=== PATIENT | female | born 1950 | race Caucasian/White ===

== ENCOUNTER → 2018-04-15 13:09 | Outpatient (CLI) | payer MEDICARE, OTHER, SELFPAY ==
--- NOTE | 2018-04-15 13:10 | DI.MG.S_ITS ---
BILATERAL DIGITAL DIAGNOSTIC MAMMOGRAM 3D/2D: 04/15/2018 CLINICAL: Left nipple discharge. Comparison is made to exams dated: 06/10/2016 mammogram, 06/12/2017 mammogram, and 05/21/2015 mammogram - [facility]. There are scattered fibroglandular elements in both breasts. No significant masses, calcifications, or other findings are seen in either breast. IMPRESSION: INCOMPLETE: NEEDS ADDITIONAL IMAGING EVALUATION There is no abnormality seen in the left breast to correspond with the discharge from the nipple in the sub-areolar depth, however, ultrasound is recommended. This exam was interpreted at Station ID: [id number]. NOTE: For mammograms, a report in lay terms will be sent to the patient. Approximately 15% of breast malignancies will not be visualized mammographically. In the management of a palpable breast mass, a negative mammogram must not discourage biopsy of a clinically suspicious lesion. Electronically Signed By: Ken lima/rita:04/15/2018 14:08:40 letter sent: Need Ultrasound ACR BI-RADS Category 0: Incomplete 3340F
--- NOTE | 2018-04-15 13:10 | DI.US.S_ITS ---
ULTRASOUND OF LEFT BREAST: 04/15/2018 CLINICAL: Intermittent left nipple bleeding x 8 days. Comparison is made to exams dated: 04/15/2018 mammogram, 06/12/2017 mammogram, and 06/10/2016 mammogram - [facility]. Color flow and real-time ultrasound of the left breast were performed on the areas of interest. There is duct ectasia in the left breast central to the nipple in the retroareolar region. No discrete internal mass identified. Color flow imaging demonstrates that there is no vascularity present. IMPRESSION: INCOMPLETE: NEEDS ADDITIONAL IMAGING EVALUATION - FOLLOW-UP RECOMMENDED The retroareolar duct ectasia in the left breast is indeterminate given history of bloody nipple discharge. An MRI is recommended. This exam was interpreted at Station ID: [id number]. Electronically Signed By: Ken lima/:04/15/2018 15:20:22 letter sent: Need MRI Ultrasound BI-RADS: 0 Indeterminate
== END ==
PROVIDERS: Family Provider Family Medicine; PCP Family Medicine; Visit Provider Internal Medicine
DX: R92.8 Other abnormal and inconclusive findings on diagnostic imaging of breast (principal); N64.52 Nipple discharge
CPT/HCPCS: 76642; 76830; 77066; G0279

== ENCOUNTER → 2018-05-03 08:21 | Outpatient (CLI) | payer MEDICARE, OTHER, SELFPAY ==
[2018-05-03 09:14] LABS: Add Manual Diff / Slide Review NO; Basophils Percent Auto 0.5 % (0-2); Eosinophils Percent Auto 3.5 % (2-4); Hematocrit 38.5 % (36-46); Hemoglobin 13.5 g/dL (12.0-16.0); Lymphocytes Percent Auto 30.4 % (25-40); Mean Corpuscular Hemoglobin 30.5 PG (26-34); Neutrophils Absolute Auto 3800 /uL (3000-5900); Neutrophils Percent Auto 56.6 % (50-75); Platelet Count 193 X10^3/uL (150-400); Red Blood Cell Count 4.43 X10^6/uL (4.0-5.2); White Blood Cell Count 6.8 X10^3/uL (4.5-11.0)
[2018-05-03 09:39] LABS: Alanine Aminotransferase 25 IU/L (9-52); Albumin 4.1 g/dL (3.5-5.0); Albumin Globulin Ratio 1.3 (1.0-2.8); Alkaline Phosphatase 54 U/L (38-126); Aspartate Aminotransferase 29 IU/L (14-36); BUN Creatinine Ratio 17.5 (6-22); Bilirubin Total 0.9 mg/dL (0.2-1.3); Blood Urea Nitrogen 14 mg/dL (7-17); Calcium 9.4 mg/dL (8.4-10.2); Carbon Dioxide 27 mmol/L (22-32); Chloride 104 mmol/L (98-107); Cholesterol 226 mg/dL (140-199); Estimated Glomerular Filt Rate > 60.0 mL/min (>60); Globulin 3.1 g/dL (1.7-4.1); Glucose 105 mg/dL (80-110); HDL Cholesterol 49 mg/dL (40-60); HEMOLYSIS < 15 (0-50); LDL Cholesterol Calculated 146 mg/dL (<100); Potassium 4.2 mmol/L (3.4-5.1); Sodium 138 mmol/L (137-145); Total Protein 7.2 g/dL (6.3-8.2); Triglycerides 154 mg/dL (35-150)
[2018-05-03 10:05] LABS: TSH w/ Reflex to FT4 2.32 uIU/mL (0.47-4.68)
== END ==
PROVIDERS: PCP Family Medicine; Visit Provider Family Medicine
DX: E78.2 Mixed hyperlipidemia (principal); E03.9 Hypothyroidism, unspecified
CPT/HCPCS: 36415; 80053; 80061; 84443; 85025

== ENCOUNTER → 2018-05-04 09:45 | Outpatient (CLI) | payer MEDICARE, OTHER, SELFPAY ==
--- NOTE | 2018-05-04 09:46 | DI.MRI.S_ITS ---
BREAST MRI OF BOTH BREASTS : 05/04/2018 CLINICAL: Left breast blood/discharge. Comparison is made to exams dated: 04/15/2018 ultrasound, 04/15/2018 mammogram, 06/12/2017 mammogram, 06/10/2016 mammogram, and 05/21/2015 mammogram - [facility]. Informed consent was obtained from the patient. Axial T1, T2, and pre and post contrast T1 images were obtained. Bilateral background breast enhancement is mild. There is linear increased T1 signal in the subareolar breasts bilaterally consistent with duct ectasia containing proteinaceous/hemorrhagic debris. There is no abnormal enhancement, masses, or distortion bilaterally. There is no correlate for the left breast discharge. IMPRESSION: NEGATIVE There is no abnormality seen in the left breast to correspond with the discharge from the nipple, however, clinical followup is recommended. There is no MRI evidence of malignancy bilaterally. A 1 year screening mammogram is recommended. This exam was interpreted at Station ID: [id number]. Electronically Signed By: Darin Rausch M.D. cj/:05/05/2018 07:56:50 Entry: - 05/05/2018 07:56:50 ACR BI-RADS Category 1: Negative 3341F
== END ==
PROVIDERS: Family Provider Family Medicine; PCP Family Medicine; Visit Provider Family Medicine
DX: N64.52 Nipple discharge (principal)
CPT/HCPCS: A9579; C8908

== ENCOUNTER → 2019-05-10 09:22 | Outpatient (CLI) | payer MEDICARE, OTHER, SELFPAY ==
--- NOTE | 2019-05-10 | DI.MG.S_ITS ---
BILATERAL DIGITAL SCREENING MAMMOGRAM 3D/2D WITH CAD: 05/10/2019 CLINICAL: Routine screening. Family history of breast cancer. Comparison is made to exams dated: 05/04/2018 breast MRI, 04/15/2018 mammogram, and 06/12/2017 mammogram - [facility]. There are scattered fibroglandular elements in both breasts. Current study was also evaluated with a Computer Aided Detection (CAD) system. There are benign vascular calcifications in the right breast. No significant masses, calcifications, or other findings are seen in either breast. There has been no significant interval change. IMPRESSION: There is no mammographic evidence of malignancy. A 1 year screening mammogram is recommended. This exam was interpreted at Station ID: [id number]. NOTE: For mammograms, a report in lay terms will be sent to the patient. Approximately 15% of breast malignancies will not be visualized mammographically. In the management of a palpable breast mass, a negative mammogram must not discourage biopsy of a clinically suspicious lesion. Electronically Signed By: Raz morales/rita:05/10/2019 10:40:54 letter sent: Normal Exam ACR BI-RADS Category 2: Benign Finding(s) 3342F
== END ==
PROVIDERS: Family Provider Family Medicine; PCP Family Medicine; Visit Provider Family Medicine
DX: Z12.31 Encounter for screening mammogram for malignant neoplasm of breast (principal); Z80.3 Family history of malignant neoplasm of breast
CPT/HCPCS: 77063; 77067

== ENCOUNTER → 2019-07-11 08:40 | Outpatient (CLI) | payer MEDICARE, OTHER, SELFPAY ==
[2019-07-11 09:51] LABS: Add Manual Diff / Slide Review NO; Basophils Absolute Auto 0 /uL (0-100); Basophils Percent Auto 0.7 % (0-2); Eosinophils Absolute Auto 200 /uL (0-450); Eosinophils Percent Auto 3.9 % (2-4); Hemoglobin 13.8 g/dL (12.0-16.0); Lymphocytes Absolute Auto 2000 /uL (1100-4500); Lymphocytes Percent Auto 37.4 % (25-40); Mean Corpuscular HGB Conc 34.6 % (30-36); Mean Corpuscular Hemoglobin 30.4 PG (26-34); Mean Corpuscular Volume 87.8 fL (80-100); Monocytes Absolute Auto 400 /uL (0-900); Neutrophils Absolute Auto 2600 /uL (1500-7000); Platelet Count 206 X10^3/uL (150-400); Red Blood Cell Count 4.55 X10^6/uL (4.0-5.2); Red Cell Distribution Width 12.7 % (11.6-14.8); White Blood Cell Count 5.3 X10^3/uL (4.5-11.0)
[2019-07-11 10:19] LABS: Alanine Aminotransferase 15 IU/L (9-52); Albumin 4.1 g/dL (3.5-5.0); Albumin Globulin Ratio 1.3 (1.0-2.8); Alkaline Phosphatase 51 U/L (38-126); Aspartate Aminotransferase 30 IU/L (14-36); BUN Creatinine Ratio 23.8 (6-22); Bilirubin Total 0.4 mg/dL (0.2-1.3); Blood Urea Nitrogen 19 mg/dL (7-17); Calcium 9.4 mg/dL (8.4-10.2); Carbon Dioxide 23 mmol/L (22-32); Chloride 106 mmol/L (98-107); Cholesterol 242 mg/dL (140-199); Estimated Glomerular Filt Rate > 60.0 mL/min (>60); Globulin 3.2 g/dL (1.7-4.1); Glucose 103 mg/dL (80-110); HDL Cholesterol 43 mg/dL (40-60); HEMOLYSIS < 15 (0-50); LDL Cholesterol Calculated 144 mg/dL (<100); Potassium 4.3 mmol/L (3.4-5.1); Sodium 138 mmol/L (137-145); Total Protein 7.3 g/dL (6.3-8.2); Triglycerides 277 mg/dL (35-150)
[2019-07-11 11:24] LABS: Thyroid Stimulating Hormone 2.58 uIU/mL (0.47-4.68)
== END ==
PROVIDERS: PCP Family Medicine; Visit Provider Family Medicine
DX: E03.9 Hypothyroidism, unspecified (principal); E78.2 Mixed hyperlipidemia; Z78.0 Asymptomatic menopausal state
CPT/HCPCS: 36415; 80053; 80061; 84443; 85025

== ENCOUNTER 2019-11-22 09:00 | Outpatient (RCR) | payer MEDICARE, OTHER, SELFPAY ==
--- NOTE | 2019-09-20 13:40 | PT.OIE ---
Current Diagnoses Other specified disorders of muscle (09/20/19) Cystocele, unspecified (09/20/19) Pelvic muscle wasting (09/20/19) Past Medical History (Last Reviewed 09/13/19 @ 11:03 by Radha Dillon MD) Abnormal Pap smear of cervix (Resolved) Cervical spine disease (Chronic 2011) Diverticular disease (Chronic ~2007) 6 (Resolved) Hypothyroidism (Chronic ~2004) Tinnitus (Chronic) Past Surgical History (Last Reviewed 09/13/19 @ 11:03 by Radha Dillon MD) Anesthesia (Resolved) Status post tonsillectomy and adenoidectomy (Resolved 1950) Status post tubal ligation (Resolved 1986) Visit Care Team Role Provider Type Issa Abrams MD Primary Care Provider Physician Specialty: Family Practice Address: [address] [place] [address], [id number] Email: [email or web address] Radha Dillon MD Attending Provider Physician Specialty: [employer] Address: [address] [place] [address], [id number] Email: Physical Therapy Initial Evaluation PT-OP-A Visit Information Start: 09/20/19 09:32 Freq: Status: Active Protocol: Document 09/20/19 09:33 [facility] (Rec: 09/20/19 10:38 [facility] [id number]) Out-Patient Physical Therapy Visit Information Visit Information Visit Type Initial Evaluation Visit Start Time 09:45 Visit Stop Time 10:30 Total Visit Minutes 45 Visit Number 1 Evaluation Information Evaluation Date 09/20/19 PT-OP-B Current Condition Start: 09/20/19 09:32 Freq: Status: Active Protocol: Document 09/20/19 09:33 [facility] (Rec: 09/20/19 10:38 [facility] [id number]) Current Condition History of Current Condition Onset Date early last fall Current Complaints pelvic organ prolapse, heaviness, frequency of voiding History of Current Condition PT reports she walks regularly and goes to the bathroom prior to leaving the house but started feeling bladder urgency with walking. Mid August she started feeling the prolapse. If she could clench it would help relieve the urgency. But she feels as if she has to clench all the time. Has estrogen cream on order to begin using. Describes her symptoms as uncomfortable but not painful. She has a history of 4 vaginal deliveries. Treatment Goals Patient/Caregiver Goals to decrease urinary urgency and pelvic organ prolapse PT-OP-I Pelvic Floor Start: 09/20/19 09:32 Freq: Status: Active Protocol: Document 09/20/19 09:33 [facility] (Rec: 09/20/19 09:58 [facility] [id number]) Pelvic Floor Assessment Urine Pelvic Floor Surgery No Urinary Symptoms Urge Sensation,Prolapse, Hesitancy,Incomplete Emptying Other Urinary Symptoms pelvic pressure from cystocele and urgency that limits her walking exercise routine. Leaking is only with strong cough or sneeze and isn't a daily problem. Leakage Size Small Leakage Cause Cough Pelvic Clock Pelvic Clock 12-3 Atrophy Pelvic Clock 9-12 Atrophy Prolapse Uterine Prolapse Grade 2 Cystocele Grade 2 Rectocele Grade 1 SEMG (uV) Baseline 2.0 10 Second Contraction 23.4 Holding Fair Contraction Ability Voluntary Contraction Weak Manual Muscle Testing Left 3 Manual Muscle Testing Right 3 Manual Muscle Testing Anterior 2 Manual Muscle Testing Posterior 3 Muscle Endurance (Seconds) 8 Comments Pelvic Floor Comments able to contract her pelvic floor with MMT of 3/5 for all parts of the levator ani except the anterior wall which is 2/5 MMT but has difficulty sustaining a contraction the full 10 seconds PT-OP-Q Treatments Start: 09/20/19 09:32 Freq: Status: Active Protocol: Document 09/20/19 13:23 [facility] (Rec: 09/25/19 13:37 [facility] [id number]) Therapeutic Exercises Supine Exercises 1 Supine Exercise Name pelvic floor long holds 10 second hold time with 10 second relaxation Side bilateral Reps/Minutes x 10 reps Comments worked on EMG biofeedback for pelvic floor facilitation prior to contraction Self-Care/Home Management Treatment Education Patient Education Home Exercise Program Other Education pt educated in bladder irritants as she drinks 4-5 glasses per day of caffeinated beverages PT-OP-T Assessment and Plan Start: 09/20/19 09:32 Freq: Status: Active Protocol: Document 09/20/19 13:23 [facility] (Rec: 09/25/19 13:37 [facility] [email or web address]) Physical Therapy Assessment Goals Four Impairment decreased strength of the anterior wall of the levator ani Prison Goal (LTG) Mitali is educated on strengthening of the anterior wall of her pelvic floor. She is able to feel this contraction and improve strength to 3/5 or better in the anterior wall LTG Duration 8 weeks Three Impairment Decreased endurance of the pelvic floor muscles Prison Goal (LTG) Mitali is able to sustain a pelvic floor contraction x 10 seconds in both supine and standing demonstrating improved endurance of the pelvic floor LTG Duration 8 weeks Two Impairment c/o pelvic pressure from Pelvic organ prolapse Interventional Tech Goal (LTG) With pelvic floor strengthening Theresa reports decreased c/o pelvic pressure and heaviness LTG Duration 8 weeks One Impairment Urinary urgency and frequency Short Term Goal (STG) Theresa is educated on bladder irritants, given a bladder diary to help her track her voids STG Duration 3 weeks Interventional Tech Goal (LTG) Theresa is able to continue her walks in the am without having to stop to void LTG Duration 8 weeks Assessment Summary Assessment Mitali presents to PT today with newer onset of pelvic organ prolapse and urinary frequency. Mitali reports she walks daily but now is having a great amount of urgency with her walks and feeling pelvic pressure. She is voiding more often now and waking 1=2 times per night to void. She reports feeling as if she needs to constantly contract her pelvic floor in standing to hold everything up. She leaks only with strong cough or sneeze. With examination today Mitali is able to contract all parts of her levator ani but she is weaker in her anterior wall and has difficulty sustaining a contraction for a full 10 seconds. She has to work on not jorge her gluteal muscles. She did better with her pelvis elevated to take pressure off her pelvic organs . She responded well to EMG biofeedback today for pelvic floor strengthening. Treatment will also include education on dietary irritants as Mitali drinks 4-5 cups of coffee per day and this may be causing increased urgency to void. Physical Therapy Plan Frequency and Duration Frequency of Treatment 1x/Week Duration of Treatment 8 Plan of Care Start Date 09/20/19 Plan of Care End Date 11/15/19 Therapeutic Interventions Therapeutic Interventions Home Exercise Program,Manual Therapy,Neuromuscular Re- education,Patient/Caregiver Education,Self-Care/Home Management,Therapeutic Exercises Modalities Biofeedback Next Visit Focus/Plan Next Note Type Treatment Note Next Visit Plan Begin with stretches to elevate the pelvis and take pressure off the pelvic organs , bladder diary hand out, EMG biofeedback for pelvic floor endurance training
--- NOTE | 2019-10-18 12:47 | PT.OTN ---
Current Diagnoses Other specified disorders of muscle (10/18/19) Cystocele, unspecified (10/18/19) Pelvic muscle wasting (10/18/19) Physical Therapy Treatment Note PT-OP-A Visit Information Start: 09/20/19 09:32 Freq: Status: Active Protocol: Document 10/18/19 12:36 [facility] (Rec: 10/18/19 12:47 [facility] [id number]) Out-Patient Physical Therapy Visit Information Visit Information Visit Type Treatment Note Visit Start Time 10:30 Visit Stop Time 11:15 Total Visit Minutes 45 Visit Number 2 Evaluation Information Evaluation Date 09/20/19 PT-OP-B Current Condition Start: 09/20/19 09:32 Freq: Status: Active Protocol: Document 09/20/19 09:33 [facility] (Rec: 09/20/19 10:38 [facility] [id number]) Current Condition History of Current Condition Onset Date early last fall Current Complaints pelvic organ prolapse, heaviness, frequency of voiding History of Current Condition PT reports she walks regularly and goes to the bathrooom prior to leaving the house but started feeling bladder urgency with walking. Mid Novemeber she started feeling the prolapse. If she could clench it would help relieve the urgency. But she feels as if she has to clench all the time. Has estrogen cream on order to begin using. Describes her symptoms as uncomfortable but not painful. She has a history of 4 vaginal deliveries. Treatment Goals Patient/Caregiver Goals to decrease urinary urgency and pelvic organ prolapse PT-OP-C Subjective Start: 09/20/19 09:32 Freq: Status: Active Protocol: Document 10/18/19 10:22 [facility] (Rec: 10/18/19 10:35 [facility] [id number]) OP-PT Subjective Patient Comments Patient Comments Pt feels likes she is better, within a couple of weeks saw a big change, then cought a cold after Letty and felt she had a set back. This put more pressure on her bladder so had a little relapse but not to the degree of where it was to bein with. Added water into her diet and cut back on coffee some too. She reports if the urge starts happening during her walk she can contract now to calm down symptoms. Patient Reported Progress Improving PT-OP-I Pelvic Floor Start: 09/20/19 09:32 Freq: Status: Active Protocol: Document 09/20/19 09:33 [facility] (Rec: 09/20/19 09:58 [facility] [id number]) Pelvic Floor Assessment Urine Pelvic Floor Surgery No Urinary Symptoms Urge Sensation,Prolapse, Hesitancy,Incomplete Emptying Other Urinary Symptoms pelvic pressure from cystocele and urgency that limits her walking exercise routine. Leaking is only with strong cough or sneeze and isn't a daily problem. Leakage Size Small Leakage Cause Cough Pelvic Clock Pelvic Clock 12-3 Atrophy Pelvic Clock 9-12 Atrophy Prolapse Uterine Prolapse Grade 2 Cystocele Grade 2 Rectocele Grade 1 SEMG (uV) Baseline 2.0 10 Second Contraction 23.4 Holding Fair Contraction Ability Voluntary Contraction Weak Manual Muscle Testing Left 3 Manual Muscle Testing Right 3 Manual Muscle Testing Anterior 2 Manual Muscle Testing Posterior 3 Muscle Endurance (Seconds) 8 Comments Pelvic Floor Comments able to contract her pelvic floor with MMT of 3/5 for all parts of the levator ani except the anterior wall which is 2/5 MMT but has difficulty sustaining a contraction the full 10 seconds PT-OP-Q Treatments Start: 09/20/19 09:32 Freq: Status: Active Protocol: Document 10/18/19 12:36 [facility] (Rec: 10/18/19 12:47 [facility] [id number]) Therapeutic Exercises Supine Exercises 3 Supine Exercise Name clam shells Reps/Minutes 3 x 10 reps 2 Supine Exercise Name pelvic floor quick flicks Reps/Minutes 10 x 2 second hold time 1 Supine Exercise Name pelvic floor long holds 10 second hold time with 10 second relaxation Side bilateral Reps/Minutes x 10 reps Comments worked on EMG biofeedback for pelvic floor facilitation prior to contractio Other Exercises 2 Other Exercise Name templates for coordination and eccentric control Reps/Minutes x 8 minutes PT-OP-T Assessment and Plan Start: 09/20/19 09:32 Freq: Status: Active Protocol: Document 10/18/19 12:36 [facility] (Rec: 10/18/19 12:47 [facility] [email or web address]) Physical Therapy Assessment Assessment Summary Assessment Mitali was shown the bolster today but didn't feel that she needed it. She is doing better overall with her endurance and reports overall that her pressure is reduced. She may be ready for standing pelvic floor next visit. By the end of 10 reps she feels fatigued. Physical Therapy Plan Frequency and Duration Frequency of Treatment 1x/Week Duration of Treatment 8 Plan of Care Start Date 09/20/19 Plan of Care End Date 11/15/19 Therapeutic Interventions Therapeutic Interventions Home Exercise Program,Manual Therapy,Neuromuscular Re- education,Patient/Caregiver Education,Self-Care/Home Management,Therapeutic Exercises Modalities Biofeedback Next Visit Focus/Plan Next Note Type Treatment Note Next Visit Plan Reassess the pelvic floor endurance next vist and progress to standing if Mitali is ready
--- NOTE | 2019-10-26 09:38 | PT.OTN ---
Current Diagnoses Other specified disorders of muscle (10/25/19) Cystocele, unspecified (10/25/19) Pelvic muscle wasting (10/25/19) Physical Therapy Treatment Note PT-OP-A Visit Information Start: 09/20/19 09:32 Freq: Status: Active Protocol: Document 10/25/19 14:34 [facility] (Rec: 10/26/19 09:38 [facility] [email or web address]) Out-Patient Physical Therapy Visit Information Visit Information Visit Type Treatment Note Visit Start Time 14:34 Visit Stop Time 15:15 Total Visit Minutes 41 Visit Number 3 PT-OP-B Current Condition Start: 09/20/19 09:32 Freq: Status: Active Protocol: Document 09/20/19 09:33 [facility] (Rec: 09/20/19 10:38 [facility] [id number]) Current Condition History of Current Condition Onset Date early last fall Current Complaints pelvic organ prolapse, heaviness, frequency of voiding History of Current Condition PT reports she walks regularly and goes to the bathrooom prior to leaving the house but started feeling bladder urgency with walking. Mid Novemeber she started feeling the prolapse. If she could clench it would help relieve the urgency. But she feels as if she has to clench all the time. Has estrogen cream on order to begin using. Describes her symptoms as uncomfortable but not painful. She has a history of 4 vaginal deliveries. Treatment Goals Patient/Caregiver Goals to decrease urinary urgency and pelvic organ prolapse PT-OP-C Subjective Start: 09/20/19 09:32 Freq: Status: Active Protocol: Document 10/25/19 14:34 [facility] (Rec: 10/25/19 15:17 [facility] [id number]) OP-PT Subjective Patient Comments Patient Comments Has been doing her pelvic floor exercises ,cough is better, was pretty comfortable at the gym, at little bladder sensation on the treadmill still when walking. Patient Reported Progress Improving PT-OP-I Pelvic Floor Start: 09/20/19 09:32 Freq: Status: Active Protocol: Document 09/20/19 09:33 [facility] (Rec: 09/20/19 09:58 [facility] [id number]) Pelvic Floor Assessment Urine Pelvic Floor Surgery No Urinary Symptoms Urge Sensation,Prolapse, Hesitancy,Incomplete Emptying Other Urinary Symptoms pelvic pressure from cystocele and urgency that limits her walking exercise routine. Leaking is only with strong cough or sneeze and isn't a daily problem. Leakage Size Small Leakage Cause Cough Pelvic Clock Pelvic Clock 12-3 Atrophy Pelvic Clock 9-12 Atrophy Prolapse Uterine Prolapse Grade 2 Cystocele Grade 2 Rectocele Grade 1 SEMG (uV) Baseline 2.0 10 Second Contraction 23.4 Holding Fair Contraction Ability Voluntary Contraction Weak Manual Muscle Testing Left 3 Manual Muscle Testing Right 3 Manual Muscle Testing Anterior 2 Manual Muscle Testing Posterior 3 Muscle Endurance (Seconds) 8 Comments Pelvic Floor Comments able to contract her pelvic floor with MMT of 3/5 for all parts of the levator ani except the anterior wall which is 2/5 MMT but has difficulty sustaining a contraction the full 10 seconds PT-OP-Q Treatments Start: 09/20/19 09:32 Freq: Status: Active Protocol: Document 10/25/19 14:34 [facility] (Rec: 10/26/19 09:38 [facility] [email or web address]) Therapeutic Exercises Supine Exercises 3 Supine Exercise Name clam shells Reps/Minutes 3 x 10 reps 2 Supine Exercise Name pelvic floor quick flicks Reps/Minutes 10 x 2 second hold time 1 Supine Exercise Name pelvic floor long holds 10 second hold time with 10 second relaxation Side bilateral Reps/Minutes x 10 reps Comments worked on EMG biofeedback for pelvic floor facilitation prior to contractio Standing Exercises 1 Standing Exercise Name standing squats with pelvic floor activation on the return to stand Reps/Minutes x 10 reps Other Exercises 2 Other Exercise Name templates for coordination and eccentric control Reps/Minutes x 8 minutes Self-Care/Home Management Treatment Education Patient Education Body Mechanics,Home Exercise Program Caregiver Education pt educated on pressure systems with lifting weights. We discussed working on pelvic floor engagement with the exertion phase of the lift to avoid undue strain down on the pelvic floor PT-OP-T Assessment and Plan Start: 09/20/19 09:32 Freq: Status: Active Protocol: Document 10/25/19 14:34 [facility] (Rec: 10/26/19 09:38 [facility] [id number]) Physical Therapy Assessment Assessment Summary Assessment Overall good improvements with her symptoms. Endurance is improving and Mitali is able to isolate her pelvic floor better now. Work towards pelvic floor activation with weight lifting activities Physical Therapy Plan Frequency and Duration Frequency of Treatment 1x/Week Duration of Treatment 8 Plan of Care Start Date 09/20/19 Plan of Care End Date 11/15/19 Next Visit Focus/Plan Next Note Type Treatment Note Next Visit Plan work on TA in quadruped, standing pelvic floor activation. Review any weight lifting exercises with pelvic floor activation
--- NOTE | 2019-11-08 15:11 | PT.OTN ---
Current Diagnoses Other specified disorders of muscle (11/08/19) Cystocele, unspecified (11/08/19) Pelvic muscle wasting (11/08/19) Physical Therapy Treatment Note PT-OP-A Visit Information Start: 09/20/19 09:32 Freq: Status: Active Protocol: Document 11/08/19 15:07 [facility] (Rec: 11/08/19 15:11 [facility] [email or web address]) Out-Patient Physical Therapy Visit Information Visit Information Visit Type Treatment Note Visit Start Time 09:50 Visit Stop Time 10:30 Total Visit Minutes 40 Visit Number 5 PT-OP-B Current Condition Start: 09/20/19 09:32 Freq: Status: Active Protocol: Document 09/20/19 09:33 [facility] (Rec: 09/20/19 10:38 [facility] [id number]) Current Condition History of Current Condition Onset Date early last fall Current Complaints pelvic organ prolapse, heaviness, frequency of voiding History of Current Condition PT reports she walks regularly and goes to the bathrooom prior to leaving the house but started feeling bladder urgency with walking. Mid Novemeber she started feeling the prolapse. If she could clench it would help relieve the urgency. But she feels as if she has to clench all the time. Has estrogen cream on order to begin using. Describes her symptoms as uncomfortable but not painful. She has a history of 4 vaginal deliveries. Treatment Goals Patient/Caregiver Goals to decrease urinary urgency and pelvic organ prolapse PT-OP-C Subjective Start: 09/20/19 09:32 Freq: Status: Active Protocol: Document 11/08/19 15:07 [facility] (Rec: 11/08/19 15:11 [facility] [email or web address]) OP-PT Subjective Patient Comments Patient Comments continuing to do well and working on pressure systems at the gym trying to slow down her exercises to avoid undo strain PT-OP-I Pelvic Floor Start: 09/20/19 09:32 Freq: Status: Active Protocol: Document 09/20/19 09:33 [facility] (Rec: 09/20/19 09:58 [facility] [email or web address]) Pelvic Floor Assessment Urine Pelvic Floor Surgery No Urinary Symptoms Urge Sensation,Prolapse, Hesitancy,Incomplete Emptying Other Urinary Symptoms pelvic pressure from cystocele and urgency that limits her walking exercise routine. Leaking is only with strong cough or sneeze and isn't a daily problem. Leakage Size Small Leakage Cause Cough Pelvic Clock Pelvic Clock 12-3 Atrophy Pelvic Clock 9-12 Atrophy Prolapse Uterine Prolapse Grade 2 Cystocele Grade 2 Rectocele Grade 1 SEMG (uV) Baseline 2.0 10 Second Contraction 23.4 Holding Fair Contraction Ability Voluntary Contraction Weak Manual Muscle Testing Left 3 Manual Muscle Testing Right 3 Manual Muscle Testing Anterior 2 Manual Muscle Testing Posterior 3 Muscle Endurance (Seconds) 8 Comments Pelvic Floor Comments able to contract her pelvic floor with MMT of 3/5 for all parts of the levator ani except the anterior wall which is 2/5 MMT but has difficulty sustaining a contraction the full 10 seconds PT-OP-Q Treatments Start: 09/20/19 09:32 Freq: Status: Active Protocol: Document 11/08/19 09:54 [facility] (Rec: 11/08/19 10:31 [facility] [id number]) Therapeutic Exercises Supine Exercises 6 Supine Exercise Name Lower abdominal progression level 1 b Reps/Minutes x 5 5 Supine Exercise Name TA facilitation with marches Reps/Minutes x 10 4 Supine Exercise Name templates for eccentric control and coordination 3 Supine Exercise Name clam shells Reps/Minutes 3 x 10 reps 2 Supine Exercise Name pelvic floor quick flicks Reps/Minutes 10 x 2 second hold time 1 Supine Exercise Name pelvic floor long holds 10 second hold time with 10 second relaxation Side bilateral Reps/Minutes x 10 reps Comments worked on EMG biofeedback for pelvic floor facilitation prior to contraction Other Exercises 1 Other Exercise Name quadruped TA facilitation with Opposite arm lifts Side bilateral Reps/Minutes x 10 reps 2 Other Exercise Name quadruped TA facilitation Reps/Minutes 10 reps with exhale upon TA facilitation, Inhale relax PT-OP-T Assessment and Plan Start: 09/20/19 09:32 Freq: Status: Active Protocol: Document 11/08/19 15:07 [facility] (Rec: 11/08/19 15:11 [facility] [email or web address]) Physical Therapy Assessment Assessment Summary Assessment Great increase in pelvic floor recruitment today. Average contraction is 21.7 uv today and max contraction is 41.4 uv . Physical Therapy Plan Frequency and Duration Frequency of Treatment 1x/Week Duration of Treatment 8 Plan of Care Start Date 09/20/19 Plan of Care End Date 11/15/19
--- NOTE | 2019-11-15 12:34 | PT.OTN ---
Current Diagnoses Other specified disorders of muscle (11/15/19) Cystocele, unspecified (11/15/19) Pelvic muscle wasting (11/15/19) Physical Therapy Treatment Note PT-OP-A Visit Information Start: 09/20/19 09:32 Freq: Status: Active Protocol: Document 11/15/19 12:28 [facility] (Rec: 11/15/19 12:34 [facility] [email or web address]) Out-Patient Physical Therapy Visit Information Visit Information Visit Type Treatment Note Visit Start Time 09:00 Visit Stop Time 09:45 Total Visit Minutes 45 Visit Number 6 Evaluation Information Evaluation Date 09/20/19 PT-OP-B Current Condition Start: 09/20/19 09:32 Freq: Status: Active Protocol: Document 09/20/19 09:33 [facility] (Rec: 09/20/19 10:38 [facility] [id number]) Current Condition History of Current Condition Onset Date early last fall Current Complaints pelvic organ prolapse, heaviness, frequency of voiding History of Current Condition PT reports she walks regularly and goes to the bathrooom prior to leaving the house but started feeling bladder urgency with walking. Mid Novemeber she started feeling the prolapse. If she could clench it would help relieve the urgency. But she feels as if she has to clench all the time. Has estrogen cream on order to begin using. Describes her symptoms as uncomfortable but not painful. She has a history of 4 vaginal deliveries. Treatment Goals Patient/Caregiver Goals to decrease urinary urgency and pelvic organ prolapse PT-OP-C Subjective Start: 09/20/19 09:32 Freq: Status: Active Protocol: Document 11/15/19 09:00 [facility] (Rec: 11/15/19 09:44 [facility] [id number]) OP-PT Subjective Patient Comments Patient Comments Pt reports she is not feeling the pelvic pressure like she was and is not having as much urgency on the treadmill or with walking. Has a appointment next week with Dr trinidad. Feeling stronger in her pelvic floor overall. Patient Reported Progress Improving PT-OP-I Pelvic Floor Start: 09/20/19 09:32 Freq: Status: Active Protocol: Document 09/20/19 09:33 [facility] (Rec: 09/20/19 09:58 [facility] [email or web address]) Pelvic Floor Assessment Urine Pelvic Floor Surgery No Urinary Symptoms Urge Sensation,Prolapse, Hesitancy,Incomplete Emptying Other Urinary Symptoms pelvic pressure from cystocele and urgency that limits her walking exercise routine. Leaking is only with strong cough or sneeze and isn't a daily problem. Leakage Size Small Leakage Cause Cough Pelvic Clock Pelvic Clock 12-3 Atrophy Pelvic Clock 9-12 Atrophy Prolapse Uterine Prolapse Grade 2 Cystocele Grade 2 Rectocele Grade 1 SEMG (uV) Baseline 2.0 10 Second Contraction 23.4 Holding Fair Contraction Ability Voluntary Contraction Weak Manual Muscle Testing Left 3 Manual Muscle Testing Right 3 Manual Muscle Testing Anterior 2 Manual Muscle Testing Posterior 3 Muscle Endurance (Seconds) 8 Comments Pelvic Floor Comments able to contract her pelvic floor with MMT of 3/5 for all parts of the levator ani except the anterior wall which is 2/5 MMT but has difficulty sustaining a contraction the full 10 seconds PT-OP-Q Treatments Start: 09/20/19 09:32 Freq: Status: Active Protocol: Document 11/15/19 12:28 [facility] (Rec: 11/15/19 12:34 [facility] [email or web address]) Therapeutic Exercises Supine Exercises 6 Supine Exercise Name Lower abdominal progression level 1 b Reps/Minutes x 5 5 Supine Exercise Name TA facilitation with marches Reps/Minutes x 10 4 Supine Exercise Name templates for eccentric control and coordination 2 Supine Exercise Name pelvic floor quick flicks Reps/Minutes 10 x 2 second hold time 1 Supine Exercise Name pelvic floor long holds 10 second hold time with 10 second relaxation Side bilateral Reps/Minutes x 10 reps Comments worked on EMG biofeedback for pelvic floor facilitation prior to contractio Other Exercises 1 Other Exercise Name quadruped TA facilitation with Opposite arm lifts Side bilateral Reps/Minutes x 10 reps 2 Other Exercise Name cat cow Reps/Minutes x 10 reps PT-OP-T Assessment and Plan Start: 09/20/19 09:32 Freq: Status: Active Protocol: Document 11/15/19 12:28 [facility] (Rec: 11/15/19 12:34 [facility] [email or web address]) Physical Therapy Assessment Goals Four Impairment decreased strength of the anterior wall of the levator ani Manager Consumer Goal (LTG) Mitali is educated on strengthening of the anterior wall of her pelvic floor. She is able to feel this contraction and improve strength to 3/5 or better in the anterior wall EXCELLENT PROGRESS LTG Duration 8 weeks Three Impairment Decreased endurance of the pelvic floor muscles Manager Consumer Goal (LTG) Mitali is able to sustain a pelvic floor contraction x 10 seconds in both supine and standing demonstrating improved endurance of the pelvic floor GOAL MET LTG Duration 8 weeks Two Impairment c/o pelvic pressure from Pelvic organ prolapse Manager Consumer Goal (LTG) With pelvic floor strengthening Theresa reports decreased c/o pelvic pressure and heaviness GOAL MET, overall decrease in pelvic pressure LTG Duration 8 weeks One Impairment Urinary urgency and frequency Short Term Goal (STG) Theresa is educated on bladder irritants, given a bladder diary to help her track her voids GOAL MET STG Duration 3 weeks Snf Goal (LTG) Theresa is able to continue her walks in the am without having to stop to void Good progress LTG Duration 8 weeks Assessment Summary Assessment Theresa is making steady progress with pelvic floor strengthening and showing a good increase in her pelvic floor strength. Her average on EMG biofeedback has increased to 21 uv and max is 41 uv. She is noting a overall reduction in her urgency and pelvic pressure. She has one visit left in PT and will then be DC to a independent [facility] Physical Therapy Plan Frequency and Duration Frequency of Treatment 1x/Week Duration of Treatment 8 Plan of Care Start Date 11/15/19 Plan of Care End Date 12/20/19 Therapeutic Interventions Therapeutic Interventions Home Exercise Program,Manual Therapy,Neuromuscular Re- education,Patient/Caregiver Education,Self-Care/Home Management,Therapeutic Exercises Modalities Biofeedback
--- NOTE | 2019-11-15 12:34 | PT.OPPOC ---
Physical, Occupational & Speech Therapy At [facility] Current Diagnoses Other specified disorders of muscle (11/15/19) Cystocele, unspecified (11/15/19) Pelvic muscle wasting (11/15/19) Visit Care Team Role Provider Type Issa Abrams MD Primary Care Provider Physician Specialty: Family Practice Address: [address] [place] [address], [id number] Email: [email or web address] Radha Dillon MD Attending Provider Physician Specialty: FRONT OFFICE JAVA DEVELOPER Address: [address] [place] [address], [id number] Email: Plan Of Care PT-OP-T Assessment and Plan Start: 09/20/19 09:32 Freq: Status: Active Protocol: Document 11/15/19 12:28 [facility] (Rec: 11/15/19 12:34 [facility] [email or web address]) Physical Therapy Assessment Goals Four Impairment decreased strength of the anterior wall of the levator ani Call Center Specialist Goal (LTG) Mitali is educated on strengthening of the anterior wall of her pelvic floor. She is able to feel this contraction and improve strength to 3/5 or better in the anterior wall EXCELLENT PROGRESS LTG Duration 8 weeks Three Impairment Decreased endurance of the pelvic floor muscles Intermediate Goal (LTG) Mitali is able to sustain a pelvic floor contraction x 10 seconds in both supine and standing demonstrating improved endurance of the pelvic floor GOAL MET LTG Duration 8 weeks Two Impairment c/o pelvic pressure from Pelvic organ prolapse Intermediate Goal (LTG) With pelvic floor strengthening Theresa reports decreased c/o pelvic pressure and heaviness GOAL MET, overall decrease in pelvic pressure LTG Duration 8 weeks One Impairment Urinary urgency and frequency Short Term Goal (STG) Theresa is educated on bladder irritants, given a bladder diary to help her track her voids GOAL MET STG Duration 3 weeks Intermediate Goal (LTG) Theresa is able to continue her walks in the am without having to stop to void Good progress LTG Duration 8 weeks Assessment Summary Assessment Theresa is making steady progress with pelvic floor strengthening and showing a good increase in her pelvic floor strength. Her average on EMG biofeedback has increased to 21 uv and max is 41 uv. She is noting a overall reduction in her urgency and pelvic pressure. She has one visit left in PT and will then be DC to a independent [facility] Physical Therapy Plan Frequency and Duration Frequency of Treatment 1x/Week Duration of Treatment 8 Plan of Care Start Date 11/15/19 Plan of Care End Date 12/20/19 Therapeutic Interventions Therapeutic Interventions Home Exercise Program,Manual Therapy,Neuromuscular Re- education,Patient/Caregiver Education,Self-Care/Home Management,Therapeutic Exercises Modalities Biofeedback Plan of Care Dates Plan of Care Start Date 11/15/19 Plan of Care End Date 12/20/19 Electronically Signed by: Brittany Dickerson, PT 11/15/19 [id number] Please Sign and Return: I have reviewed this Plan of Care and certify that the skilled therapy services above are required to meet the patient?s needs. Physician Signature Date Printed Name and Credentials Clinical Instructor Signature Printed Name and Credentials
--- NOTE | 2019-11-23 09:32 | PT.OTN ---
Current Diagnoses Other specified disorders of muscle (11/22/19) Cystocele, unspecified (11/22/19) Pelvic muscle wasting (11/22/19) Physical Therapy Treatment Note PT-OP-A Visit Information Start: 09/20/19 09:32 Freq: Status: Active Protocol: Document 11/22/19 09:14 [facility] (Rec: 11/23/19 09:32 [facility] [email or web address]) Out-Patient Physical Therapy Visit Information Visit Information Visit Type Treatment Note Visit Start Time 09:00 Visit Stop Time 09:45 Total Visit Minutes 45 Visit Number 7 Evaluation Information Evaluation Date 09/20/19 PT-OP-B Current Condition Start: 09/20/19 09:32 Freq: Status: Active Protocol: Document 09/20/19 09:33 [facility] (Rec: 09/20/19 10:38 [facility] [id number]) Current Condition History of Current Condition Onset Date early last fall Current Complaints pelvic organ prolapse, heaviness, frequency of voiding History of Current Condition PT reports she walks regularly and goes to the bathrooom prior to leaving the house but started feeling bladder urgency with walking. Mid Novemeber she started feeling the prolapse. If she could clench it would help relieve the urgency. But she feels as if she has to clench all the time. Has estrogen cream on order to begin using. Describes her symptoms as uncomfortable but not painful. She has a history of 4 vaginal deliveries. Treatment Goals Patient/Caregiver Goals to decrease urinary urgency and pelvic organ prolapse PT-OP-C Subjective Start: 09/20/19 09:32 Freq: Status: Active Protocol: Document 11/22/19 09:14 [facility] (Rec: 11/23/19 09:32 [facility] [email or web address]) OP-PT Subjective Patient Comments Patient Comments pt reports she feels independent with her home program at this time. Overall she notes decreased pressure and decreased urgency. She can tell now if she has caffeine that it does cause more urgency. She will follow up with her doctor and will continue working on her home program PT-OP-I Pelvic Floor Start: 09/20/19 09:32 Freq: Status: Active Protocol: Document 09/20/19 09:33 [facility] (Rec: 09/20/19 09:58 [facility] [email or web address]) Pelvic Floor Assessment Urine Pelvic Floor Surgery No Urinary Symptoms Urge Sensation,Prolapse, Hesitancy,Incomplete Emptying Other Urinary Symptoms pelvic pressure from cystocele and urgency that limits her walking exercise routine. Leaking is only with strong cough or sneeze and isn't a daily problem. Leakage Size Small Leakage Cause Cough Pelvic Clock Pelvic Clock 12-3 Atrophy Pelvic Clock 9-12 Atrophy Prolapse Uterine Prolapse Grade 2 Cystocele Grade 2 Rectocele Grade 1 SEMG (uV) Baseline 2.0 10 Second Contraction 23.4 Holding Fair Contraction Ability Voluntary Contraction Weak Manual Muscle Testing Left 3 Manual Muscle Testing Right 3 Manual Muscle Testing Anterior 2 Manual Muscle Testing Posterior 3 Muscle Endurance (Seconds) 8 Comments Pelvic Floor Comments able to contract her pelvic floor with MMT of 3/5 for all parts of the levator ani except the anterior wall which is 2/5 MMT but has difficulty sustaining a contraction the full 10 seconds PT-OP-Q Treatments Start: 09/20/19 09:32 Freq: Status: Active Protocol: Document 11/22/19 09:14 [facility] (Rec: 11/23/19 09:32 [facility] [email or web address]) Therapeutic Exercises Supine Exercises 6 Supine Exercise Name Lower abdominal progression level 1 b Reps/Minutes x 5 5 Supine Exercise Name TA facilitation with marches Reps/Minutes x 10 4 Supine Exercise Name templates for eccentric control and coordination 3 Supine Exercise Name clam shells Reps/Minutes 3 x 10 reps 2 Supine Exercise Name pelvic floor quick flicks Reps/Minutes 10 x 2 second hold time 1 Supine Exercise Name pelvic floor long holds 10 second hold time with 10 second relaxation Side bilateral Reps/Minutes x 10 reps Comments worked on EMG biofeedback for pelvic floor facilitation prior to contractio PT-OP-T Assessment and Plan Start: 09/20/19 09:32 Freq: Status: Active Protocol: Document 11/22/19 09:14 [facility] (Rec: 11/23/19 09:32 [facility] [email or web address]) Physical Therapy Assessment Goals Four Impairment decreased strength of the anterior wall of the levator ani Nursing Home Goal (LTG) Mitali is educated on strengthening of the anterior wall of her pelvic floor. She is able to feel this contraction and improve strength to 3/5 or better in the anterior wall GOAL MET LTG Duration 8 weeks Three Impairment Decreased endurance of the pelvic floor muscles Frame Operator Goal (LTG) Mitali is able to sustain a pelvic floor contraction x 10 seconds in both supine and standing demonstrating improved endurance of the pelvic floor GOAL MET LTG Duration 8 weeks Two Impairment c/o pelvic pressure from Pelvic organ prolapse Nursing Home Goal (LTG) With pelvic floor strengthening Theresa reports decreased c/o pelvic pressure and heaviness GOAL MET, overall decrease in pelvic pressure LTG Duration 8 weeks One Impairment Urinary urgency and frequency Short Term Goal (STG) Theresa is educated on bladder irritants, given a bladder diary to help her track her voids GOAL MET STG Duration 3 weeks Frame Operator Goal (LTG) Theresa is able to continue her walks in the am without having to stop to void EXCELLENT PROGRESS LTG Duration 8 weeks Assessment Summary Assessment Theresa has made great overall progress with pelvic floor strengthening. She demonstrates improved endurance of the pelvic floor, decreased urgency and decreased c/o heaviness from the pelvic organ prolapse. Mitali will be discharged from PT at this time to a [facility] Physical Therapy Plan Discharge Physical Therapy Discharge Reasons Goals Met
== END 2019-11-29 08:45 | disposition home or self-care (01) ==
LOC: PHYS 09:00
PROVIDERS: PCP Family Medicine; Visit Provider Obstetrics & Gynecology
DX: M62.89 Other specified disorders of muscle (principal); N81.84 Pelvic muscle wasting; N81.10 Cystocele, unspecified
CPT/HCPCS: 97110; 97161; 97535

== ENCOUNTER → 2020-07-11 08:14 | Outpatient (CLI) | payer MEDICARE, OTHER, SELFPAY ==
--- NOTE | 2020-07-11 | DI.MG.S_ITS ---
BILATERAL DIGITAL SCREENING MAMMOGRAM 3D/2D WITH CAD: 07/11/2020 CLINICAL: Routine screening. Family history of breast cancer. Comparison is made to exams dated: 05/10/2019 mammogram, 04/15/2018 mammogram, and 06/12/2017 mammogram - [facility]. There are scattered fibroglandular elements in both breasts. Current study was also evaluated with a Computer Aided Detection (CAD) system. There are benign vascular calcifications in the right breast. No significant masses, calcifications, or other findings are seen in either breast. There has been no significant interval change. IMPRESSION: BENIGN There is no mammographic evidence of malignancy. A 1 year screening mammogram is recommended. This exam was interpreted at Station ID: [id number]. NOTE: For mammograms, a report in lay terms will be sent to the patient. Approximately 15% of breast malignancies will not be visualized mammographically. In the management of a palpable breast mass, a negative mammogram must not discourage biopsy of a clinically suspicious lesion. Electronically Signed By: Chu Solitario M.D., jr/rita:07/11/2020 09:03:06 letter sent: Normal Exam ACR BI-RADS Category 2: Benign Finding(s) [id number]
[2020-07-11 10:32] LABS: Add Manual Diff / Slide Review NO; Basophils Absolute Auto 100 /uL (0-100); Basophils Percent Auto 0.8 % (0-2); Eosinophils Absolute Auto 200 /uL (0-450); Eosinophils Percent Auto 2.8 % (2-4); Hematocrit 39.2 % (36-46); Hemoglobin 13.7 g/dL (12.0-16.0); Lymphocytes Absolute Auto 2100 /uL (1100-4500); Lymphocytes Percent Auto 27.1 % (25-40); Mean Corpuscular HGB Conc 34.9 % (30-36); Mean Corpuscular Hemoglobin 30.7 PG (26-34); Mean Corpuscular Volume 88.2 fL (80-100); Monocytes Absolute Auto 500 /uL (0-900); Monocytes Percent Auto 6.7 % (3-14); Neutrophils Absolute Auto 4800 /uL (1500-7000); Neutrophils Percent Auto 62.6 % (50-75); Platelet Count 207 X10^3/uL (150-400); Red Blood Cell Count 4.45 X10^6/uL (4.0-5.2); Red Cell Distribution Width 13.3 % (11.6-14.8); White Blood Cell Count 7.7 X10^3/uL (4.5-11.0)
[2020-07-11 11:35] LABS: Alanine Aminotransferase 20 IU/L (<35); Albumin 4.2 g/dL (3.5-5.0); Albumin Globulin Ratio 1.4 (1.0-2.8); Alkaline Phosphatase 51 U/L (38-126); Aspartate Aminotransferase 35 IU/L (14-36); BUN Creatinine Ratio 16.7 (6-22); Bilirubin Total 0.6 mg/dL (0.2-1.3); Blood Urea Nitrogen 14 mg/dL (7-17); Calcium 9.1 mg/dL (8.4-10.2); Carbon Dioxide 26 mmol/L (22-32); Chloride 106 mmol/L (98-107); Cholesterol 257 mg/dL (140-199); Estimated Glomerular Filt Rate > 60.0 mL/min (>60); Globulin 2.9 g/dL (1.7-4.1); Glucose 98 mg/dL (80-110); HDL Cholesterol 45 mg/dL (40-60); HEMOLYSIS < 15 (0-50); LDL Cholesterol Calculated 154 mg/dL (<100); Potassium 4.6 mmol/L (3.4-5.1); Sodium 137 mmol/L (137-145); Total Protein 7.1 g/dL (6.3-8.2); Triglycerides 291 mg/dL (35-150)
[2020-07-11 11:53] LABS: Thyroid Stimulating Hormone 2.16 uIU/mL (0.47-4.68)
== END ==
PROVIDERS: PCP Family Medicine; Referring Provider Family Medicine; Visit Provider Family Medicine
DX: Z12.31 Encounter for screening mammogram for malignant neoplasm of breast (principal); Z80.3 Family history of malignant neoplasm of breast; E03.9 Hypothyroidism, unspecified; E78.2 Mixed hyperlipidemia
CPT/HCPCS: 36415; 77063; 77067; 80053; 80061; 84443; 85025

== ENCOUNTER → 2021-09-09 16:16 | Outpatient (CLI) | payer MEDICARE, OTHER, SELFPAY ==
--- NOTE | 2021-09-09 | DI.MG.S_ITS ---
BILATERAL DIGITAL SCREENING MAMMOGRAM 3D/2D WITH CAD: 09/09/2021 CLINICAL: Routine screening. Family history of breast cancer. Comparison is made to exams dated: 07/11/2020 mammogram, 05/10/2019 mammogram, and 04/15/2018 mammogram - [facility]. There are scattered fibroglandular elements in both breasts. Current study was also evaluated with a Computer Aided Detection (CAD) system. There are benign vascular calcifications in the right breast. No significant masses, calcifications, or other findings are seen in either breast. There has been no significant interval change. IMPRESSION: BENIGN There is no mammographic evidence of malignancy. A 1 year screening mammogram is recommended. This exam was interpreted at Station ID: [id number]. NOTE: For mammograms, a report in lay terms will be sent to the patient. Approximately 15% of breast malignancies will not be visualized mammographically. In the management of a palpable breast mass, a negative mammogram must not discourage biopsy of a clinically suspicious lesion. Electronically Signed By: Kenan ellis/rita:09/09/2021 16:48:38 letter sent: Normal Exam ACR BI-RADS Category 2: Benign Finding(s) [id number]
== END ==
PROVIDERS: PCP Nurse Practitioner Family; Referring Provider Nurse Practitioner Family; Visit Provider Nurse Practitioner Family
DX: Z12.31 Encounter for screening mammogram for malignant neoplasm of breast (principal); Z80.3 Family history of malignant neoplasm of breast
CPT/HCPCS: 77063; 77067

== ENCOUNTER → 2021-11-11 08:04 | Outpatient (CLI) | payer MEDICARE, OTHER, SELFPAY ==
[2021-11-11 09:05] LABS: Hemoglobin 13.2 g/dL (12.0-16.0); Mean Corpuscular HGB Conc 34.8 % (30-36); Mean Corpuscular Volume 86.2 fL (80-100); Platelet Count 206 X10^3/uL (150-400); Red Blood Cell Count 4.41 X10^6/uL (4.0-5.2); Red Cell Distribution Width 12.7 % (11.6-14.8); White Blood Cell Count 4.9 X10^3/uL (4.5-11.0)
[2021-11-11 09:10] LABS: Alanine Aminotransferase 17 IU/L (<35); Albumin 4.2 g/dL (3.5-5.0); Albumin Globulin Ratio 1.4 (1.0-2.8); Alkaline Phosphatase 37 U/L (38-126); Aspartate Aminotransferase 29 IU/L (14-36); BUN Creatinine Ratio 26.7 (6-22); Bilirubin Total 0.5 mg/dL (0.2-1.3); Blood Urea Nitrogen 23 mg/dL (7-17); Calcium 9.4 mg/dL (8.4-10.2); Carbon Dioxide 26 mmol/L (22-32); Chloride 108 mmol/L (98-107); Cholesterol 260 mg/dL (140-199); Estimated Glomerular Filt Rate > 60.0 mL/min (>60); Globulin 3.1 g/dL (1.7-4.1); Glucose 109 mg/dL (80-110); HDL Cholesterol 45 mg/dL (40-60); HEMOLYSIS < 15 (0-50); LDL Cholesterol Calculated 183 mg/dL (<100); Potassium 4.4 mmol/L (3.4-5.1); Sodium 138 mmol/L (137-145); Total Protein 7.3 g/dL (6.3-8.2); Triglycerides 161 mg/dL (35-150)
[2021-11-11 10:03] LABS: Free T4, Direct Thyroxine 1.42 ng/dL (0.78-2.19)
[2021-11-11 10:16] LABS: Thyroid Stimulating Hormone 2.38 uIU/mL (0.47-4.68)
== END ==
PROVIDERS: PCP Nurse Practitioner Family; Referring Provider Nurse Practitioner Family; Visit Provider Nurse Practitioner Family
DX: E03.9 Hypothyroidism, unspecified (principal); E78.2 Mixed hyperlipidemia; Z00.00 Encounter for general adult medical examination without abnormal findings
CPT/HCPCS: 36415; 80053; 80061; 84439; 84443; 85027

== ENCOUNTER → 2022-04-21 08:06 | Outpatient (CLI) | payer MEDICARE, OTHER, SELFPAY ==
[2022-04-21 09:37] LABS: Cholesterol 256 mg/dL (140-199); HDL Cholesterol 42 mg/dL (40-60); LDL Cholesterol Calculated 178 mg/dL (<100); Triglycerides 179 mg/dL (35-150)
== END ==
PROVIDERS: PCP Nurse Practitioner Family; Referring Provider Nurse Practitioner Family; Visit Provider Nurse Practitioner Family
DX: E78.2 Mixed hyperlipidemia (principal); Z13.6 Encounter for screening for cardiovascular disorders
CPT/HCPCS: 36415; 80061

== ENCOUNTER → 2022-10-14 07:56 | Outpatient (CLI) | payer MEDICARE, OTHER, SELFPAY ==
--- NOTE | 2022-10-14 | DI.MG.S_ITS ---
BILATERAL DIGITAL SCREENING MAMMOGRAM 3D/2D WITH CAD: 10/14/2022 CLINICAL: Routine screening. Family history of breast cancer. Comparison is made to exams dated: 09/09/2021 mammogram, 07/11/2020 mammogram, and 05/10/[address] - [facility]. There are scattered areas of fibroglandular density in both breasts (category b / 25%-50% glandular tissue). Current study was also evaluated with a Computer Aided Detection (CAD) system. There are benign vascular calcifications in both breasts. No significant masses, calcifications, or other findings are seen in either breast. There has been no significant interval change. IMPRESSION: BENIGN There is no mammographic evidence of malignancy. A 1 year screening mammogram is recommended. Based on the Tyrer Cuzick model (a risk assessment model) the patient's lifetime risk is 4.8% and her 10 year risk is 3.9%. According to the ACR, ACS, and NCCN guidelines, an annual breast MRI exam along with mammogram is recommended if the patient's lifetime risk is 20% or greater. This exam was interpreted at Station ID: [id number]. NOTE: For mammograms, a report in lay terms will be sent to the patient. Approximately 15% of breast malignancies will not be visualized mammographically. In the management of a palpable breast mass, a negative mammogram must not discourage biopsy of a clinically suspicious lesion. Electronically Signed By: Britton abel/rita:10/14/2022 10:39:48 letter sent: Normal Exam ACR BI-RADS Category 2: Benign Finding(s) [id number]
== END ==
PROVIDERS: PCP Nurse Practitioner; Referring Provider Nurse Practitioner; Visit Provider Nurse Practitioner
DX: Z12.31 Encounter for screening mammogram for malignant neoplasm of breast (principal); Z80.3 Family history of malignant neoplasm of breast
CPT/HCPCS: 77063; 77067

== ENCOUNTER → 2022-11-13 07:02 | Outpatient (CLI) | payer MEDICARE, OTHER, SELFPAY ==
[2022-11-13 08:44] LABS: Alanine Aminotransferase 19 IU/L (<35); Albumin Globulin Ratio 1.4 (1.0-2.8); Alkaline Phosphatase 47 U/L (38-126); Aspartate Aminotransferase 27 IU/L (14-36); BUN Creatinine Ratio 21.7 (6-22); Bilirubin Total 0.5 mg/dL (0.2-1.3); Blood Urea Nitrogen 18 mg/dL (7-17); Calcium 9.1 mg/dL (8.4-10.2); Carbon Dioxide 23 mmol/L (22-32); Chloride 105 mmol/L (98-107); Cholesterol 262 mg/dL (140-199); Estimated Glomerular Filt Rate > 60 mL/min (>60); Globulin 2.9 g/dL (1.7-4.1); Glucose 103 mg/dL (80-110); HDL Cholesterol 51 mg/dL (40-60); HEMOLYSIS < 15 (0-50); LDL Cholesterol Calculated 170 mg/dL (<100); Potassium 4.4 mmol/L (3.4-5.1); Sodium 138 mmol/L (137-145); Total Protein 6.9 g/dL (6.3-8.2); Triglycerides 206 mg/dL (35-150)
[2022-11-13 09:13] LABS: Thyroid Stimulating Hormone 2.54 uIU/mL (0.47-4.68)
[2022-11-13 16:29] LABS: Hep C Virus Ab w/Reflex Quant NEGATIVE s/c (NEGATIVE)
== END ==
PROVIDERS: PCP Nurse Practitioner; Referring Provider Nurse Practitioner; Visit Provider Nurse Practitioner
DX: E03.9 Hypothyroidism, unspecified (principal); Z11.59 Encounter for screening for other viral diseases; E78.2 Mixed hyperlipidemia; Z79.899 Other long term (current) drug therapy
CPT/HCPCS: 36415; 80053; 80061; 84443; 86803

== ENCOUNTER → 2022-12-01 12:43 | Outpatient (CLI) | payer MEDICARE, OTHER, SELFPAY | PROVIDERS: PCP Nurse Practitioner; Referring Provider Nurse Practitioner; Visit Provider Nurse Practitioner | DX: Z13.820 Encounter for screening for osteoporosis (principal); Z78.0 Asymptomatic menopausal state | CPT/HCPCS: 77080 ==

== ENCOUNTER → 2023-03-13 09:17 | Outpatient (CLI) | payer MEDICARE, OTHER, SELFPAY ==
--- NOTE | 2023-03-13 09:19 | DI.RAD.S_ITS ---
PROCEDURE: XR CHEST 2V INDICATIONS: Cough TECHNIQUE: 2 views of the chest were acquired. COMPARISON: [facility], , CHEST 2 VIEW, 12/27/2015, 12:28. FINDINGS: Surgical changes and devices: None. Lungs and pleura: Lungs are clear. No pleural effusions or pneumothorax. Mediastinum: Mediastinal contours are normal. Heart size is normal. Bones and chest wall: No suspicious bony abnormalities. Soft tissues appear unremarkable. IMPRESSION: No acute cardiopulmonary pathology. Dictated by: Mynor Calix M.D. on 03/13/2023 at 12:30 Approved by: Mynor Calix M.D. on 03/13/2023 at 12:36
== END ==
PROVIDERS: PCP Nurse Practitioner; Referring Provider Nurse Practitioner Family; Visit Provider Nurse Practitioner Family
DX: R05.9 Cough, unspecified (principal)
CPT/HCPCS: 71046

== ENCOUNTER → 2023-08-31 07:17 | Outpatient (CLI) | payer MEDICARE, OTHER, SELFPAY ==
[2023-08-31 08:17] LABS: Cholesterol 246 mg/dL (140-199); HDL Cholesterol 46 mg/dL (40-60); LDL Cholesterol Calculated 158 mg/dL (<100); Triglycerides 208 mg/dL (35-150)
== END ==
PROVIDERS: PCP Nurse Practitioner; Referring Provider Nurse Practitioner; Visit Provider Nurse Practitioner
DX: E78.2 Mixed hyperlipidemia (principal)
CPT/HCPCS: 36415; 80061

== ENCOUNTER 2023-09-30 10:00 | Day surgery (SDC) | payer MEDICARE, OTHER, SELFPAY ==
[2023-09-23 15:16] VITALS: BMI 26.9
[2023-09-30] VITALS (10 sets, daily range): BP systolic 99–117; BP diastolic 49–71; PULSE 73–88; RESP 12–18; TEMP 36.2–36.7; O2SAT 94–97; BMI 27.1; BMI 29.3
--- NOTE | 2023-09-30 | DI.US.S_ITS ---
PROCEDURE: US ABDOMEN LIMITED INDICATIONS: POSSIBLE LLQ HEMATOMA POST BLADDER SURGERY TECHNIQUE: Real-time focused scanning was performed of the abdomen, with image documentation. COMPARISON: None. FINDINGS: Grayscale ultrasound images of the left lower quadrant were performed. The bladder was not seen and is likely decompressed from a Cedeno which is in place. No fluid collection or mass is identified. IMPRESSION: No fluid collection or mass in the left lower quadrant. Dictated by: Presley Raya M.D. on 09/30/2023 at 16:33 Approved by: Presley Raya M.D. on 09/30/2023 at 16:34
[2023-09-30] MEDS: LACTATED RINGERS 1,000 ML 42 ML IV ×2 (10:39→14:49)
[2023-09-30] MEDS: SCOPOLAMINE 1 PATCH TOP (10:40)
--- NOTE | 2023-09-30 12:24 | PM.GYNHP.1 ---
History of Present Illness History of Present Illness Reason for admission: pelvic prolapse Narrative: Theresa Palacios is a 73 year old female 6 para 4 with symptomatic cystocele and rectocele as well as stress urinary incontinence She presents for an anterior and posterior repair as well as a TVT with cystoscopy. [facility] Medical History (Updated 09/23/23 @ 15:22 by Rebecca Ta RN) History of COVID-19 (03/2023) Arthritis Medicare annual wellness visit, subsequent (09/12/21) Diverticular disease (~2007) 6 Cervical spine disease (2011) Hypothyroidism (~2004) Abnormal Pap smear of cervix Tinnitus Surgical History Anesthesia Status post tubal ligation (1986) Status post tonsillectomy and adenoidectomy (1950) Family History Grandfather Stroke Grandmother Heart disease Hypertension Mother Age: 97 IBS (irritable bowel syndrome) Hearing loss Grandfather Stroke Grandmother Diabetes mellitus Stroke Father Pleural mesothelioma Social History household members: spouse Smoking Status: Never smoker alcohol intake: current Meds Home Medications and Allergies Home Medications Medication Instructions Recorded Confirmed Type oxyquinoline 0.025 %-sodium lauryl 1 ea vaginal .1x weekly pessary in 01/29/21 09/30/23 Rx sulfate 0.01 % vaginal gel place #113.4 grams Flax Seed Oil See Rx Instructions .Route .COMPLEX 11/18/22 09/30/23 History Ibuprofen See Rx Instructions .Route .COMPLEX 11/18/22 09/30/23 History Tylenol See Rx Instructions .Route .COMPLEX 11/18/22 09/30/23 History levothyroxine 75 mcg tablet See Rx Instructions .Route 02/04/23 09/30/23 Rx .COMPLEX #90 tabs CMP Estriol Vaginal 0.1% Cream 1 g vaginal 2XW #30 grams 05/12/23 09/30/23 Rx Allergies Allergy/AdvReac Type Severity Reaction Status Date / Time No Known Drug Allergies Allergy Verified 09/30/23 10:20 Exam Narrative Exam Narrative: HEENT: No thyromegaly, no anterior cervical or supraclavicular lymphadenopathy. Lungs:Clear to auscultation bilaterally, no wheezes. Cardiovascular: Regular rate and rhythm, no murmurs, rubs, or gallops. Abdomen: No scars. No hepatosplenomegaly. No masses palpable. External genitalia: Normal Vagina: Third-degree cystocele, third-degree rectocele, increased urethrovesical angle with Valsalva Cervix: Normal Bimanual exam: 6 Week size anteverted uterus. Mobile. No adnexal masses or tenderness Extremities: No edema Assessment & Plan Assessment & Plan narrative: Assessment: 73-year-old 6 para 4 with a symptomatic cystocele and rectocele Stress urinary incontinence with increased urethrovesical angle with Valsalva Plan: Anterior and posterior repair TVT with cystoscopy The risks, benefits, and alternatives to the procedure were explained to the patient. The risks including bleeding, infection, injury to the bowel, bladder, ureters, urethra, or rectum. She understands these risks and agrees to proceed. A full par Q was held and consent form was signed. Time Spent With Patient Time with patient: less than 30 minutes
--- NOTE | 2023-09-30 12:24 | PM.PREOP ---
Pre-operative Note Interval Note History & Physical reviewed/Exam performed by Physician: Yes Changes to H&P: No H&P completed within 30 days and has changed as indicated here:: 09/30/23
[2023-09-30] MEDS: CEFAZOLIN 2 GM/100 ML PREMIX 100 ML IV (12:30)
[2023-09-30] MEDS: ACETAMINOPHEN IV 1,000 MG/100 ML VIAL 400 MG IV (12:40)
--- NOTE | 2023-09-30 13:02 | SUR.OPER ---
Lithotomy on padded OR bed, head on pillow, arms secured on padded arm boards at <90 degrees abduction. Legs secured in padded yellow fins stirrups.
[2023-09-30] MEDS: BUPIVACAINE 0.25% (PF) 30 ML, EPINEPHrine 0.15 MG INJ (13:15)
--- NOTE | 2023-09-30 16:18 | P.OP_ITS ---
Operative Date/Time/Diagnoses Date of procedure: 09/30/23 Time of procedure: 16:18 Pre-op diagnosis: Symptomatic cystocele and rectocele Stress urinary incontinence Post-op diagnosis: same Procedure & Clinicians Procedure: Procedures Operation Date: 09/30/23 12:15 Actual Procedure Side Surgeon p Colporrhaphy Anterior/Posterior Colporrhaphy Vika Powell MD s Tensionless Vaginal Tape-Suspension Vika Powell MD Indications: 73-year-old 6 para 4 with a symptomatic cystocele and rectocele as well as stress urinary incontinence. Surgeon: Vika Powell Human Resources Intern: Thanh Jean-Baptiste Anesthesia Type: General and Local Operative Notes Findings: Third-degree cystocele Third-degree rectocele Increased urethrovesical angle with Valsalva Inadvertent cystotomy in the left lower bladder Closure Type: primary Specimen(s): none Applied: catheter (To continuous drainage) Estimated blood loss (mL): 300 Blood products transfused: none Procedure in detail: The patient was taken to the operating room where she was placed in the dorsal supine position. After adequate general endotracheal anesthesia was achieved, she was placed in the dorsal lithotomy position, and prepped and draped in the usual sterile fashion. After general endotracheal anesthesia was achieved, she was placed in the dorsal lithotomy position, and prepped and draped in the usual sterile fashion. A time-out was performed. A Cedeno catheter was placed into the bladder. A weighted speculum was placed into the vagina. The apex of the cystocele was grasped with Allis clamps. Wide Allis clamps were placed in the midline of the cystocele. 10 cc of 0.25% Marcaine with epinephrine were injected submucosally on either side of the midline as well as between the Allis clamps at the apex. An incision was made with a # 10 blade between the narrow Allis clamps at the apex. The mucosa was undermined with Metzenbaum scissors and the wide Allis clamps were moved to the mucosal edges. This was continued to within 2 cm of the urethral meatus. The underlying fascia was dissected off of the mucosa using a # 10 blade and an open moistened Ray-Zenon. The fascia was reapproximated using 0 Vicryl with simple interrupted sutures. The excess vaginal mucosa was excised. The vaginal mucosa was closed with a series of simple interrupted sutures using 2-0 Vicryl, including the underlying fascia to close the space. The urine was clear. The patient was placed flat on the table with her thighs perpendicular to the floor. The midline on her abdomen was marked as well as 2 cm lateral to the midline just above the pubic symphysis. A solution of 30 cc of 0.25% Marcaine with epinephrine and 70 cc of sterile saline were injected behind the pubic symphysis into the space of Retzius using a 20 gauge spinal needle. A weighted speculum was placed into the vagina. 4 cc of 0.25% Marcaine with epinephrine were injected just below the vaginal mucosa 1-1/2 cm away from the urethral meatus. A 1 cm incision was made. This was dissected out laterally with the Metzenbaum scissors. With the rigid catheter in the bladder and the bladder neck retracted away from the patient's right side 10 cc of 0.25% Marcaine with epinephrine were injected into the proposed space of the TVT. This was repeated on the patient's left side with the bladder neck retracted away from the patient's left side. The Hegar dilator # 4 through 6 were used to dilate the space for the proposed path of the TVT. The TVT was loaded. Starting on the patient's right side with the bladder neck retracted away from the patient's right side the TVT was aimed towards the patient's right shoulder. Once the urogenital diaphragm was perforated, the TVT was directed up behind the pubic symphysis proximally 2 cm from the midline. A small 3 mm incision was made and the TVT was grasped with a Isaac and pulled up approximately 3 cm. This was repeated on the patient's left side with the bladder neck retracted away from the patient's left side. The patient's bladder was filled with 300 cc of sterile saline. A cystoscopy was performed. There was a bubble at the dome of the bladder. No TVT applicator was seen in the bl adder. The cystoscope was removed from the bladder. The bladder was drained. The TVT was pulled up with care not to over tighten. A pickup was placed between the urethra and the TVT. The introducers to the TVT were cut. The plastic sheath was removed with care not to over tighten the TVT. The TVT was cut below the skin line. Attention was then turned back to the vagina. Using 3-0 Vicryl the vaginal mucosa was closed with a running interlocking suture. Hemostasis was achieved. The weighted speculum was removed from the vagina. Allis clamps were placed at the mucocutaneous junction. Allis clamps were placed in the midline of the rectocele. A total of 12 cc of 0.25% Marcaine with epinephrine were injected submucosally on either side of the midline. 5 cc of 0.25% Marcaine with epinephrine were injected along the perineal body. Using a # 10 blade, an incision was made between the 2 Allis clamps at the mucocutaneous junction. A triangular piece of tissue with underlying tissue was removed. The mucosa was undermined with the Metzenbaum scissors in the wide Allis clamps were moved to the mucosal edges. The underlying fascia was dissected off of the mucosa using an open moistened Ray-Zenon and a #10 blade. The fascia was reapproximated using 0 Vicryl in simple interrupted fashion. The excess vaginal mucosa was excised with Metzenbaum scissors. The mucosa was closed with 2-0 Vicryl simple interrupted sutures including the underlying fascia to close the space. A rectal exam was performed and there were no stitches in the rectum. At this time there was seen to be some blood in the urine. A repeat cystoscopy was performed and a piece of TVT was visible inside the bladder. An intraoperative consultation was obtained with Dr. Keysha Crawford at the [facility]. She recommended a repeat cystoscopy to check patency of ureters. A repeat cystoscopy was performed under sterile conditions. There were jets from both ureters. There was no active bleeding noted in the bladder. A Betadine moistened vaginal packing was placed into the vagina. Sponge, lap, and instrument counts were correct x2. The patient tolerated the procedure well, and was taken to PACU in stable condition. Complications: other (Inadvertent cystotomy) Post-operative Condition: stable Disposition: PACU Plan for aftercare: To acute care after recovery
--- NOTE | 2023-09-30 16:52 | PC.ADMIT ---
[email or web address] [facility] Admission Note: The patient,Theresa Palacios,73 y/o, was given written information regarding hospital policies, unit procedures and contact persons. Patient's smoking status: Never smoker. Vital Signs - 8 hr 09/30/23 15:55 09/30/23 16:00 09/30/23 16:05 Temperature 98.1 F Pulse Rate 88 82 82 Respiratory Rate 15 14 15 Blood Pressure 110/65 114/71 113/65 Pulse Oximetry 94 94 95 Oxygen Delivery Method Room Air Room Air Room Air Oxygen Flow Rate 09/30/23 16:15 09/30/23 16:30 09/30/23 16:30 Temperature 97.7 F 97.9 F Pulse Rate 80 77 76 Respiratory Rate 12 12 18 Blood Pressure 113/65 117/60 117/54 L Pulse Oximetry 94 95 94 Oxygen Delivery Method Room Air Room Air Oxygen Flow Rate 0 Pt arrived from PACU via bed, VSS, lap sites intact without drainage, pt denies pain, oriented to room and call light system, no futher needs at this time
[2023-09-30] MEDS: ACETAMINOPHEN 325 MG TABLET 650 MG PO ×2 (17:01→21:58)
[2023-09-30] MEDS: LACTATED RINGERS 1,000 ML 75 ML IV (17:02)
[2023-09-30] MEDS: NITROFURANTOIN ER 100 MG CAPSULE PO (21:03)
[2023-09-30] MEDS: DOCUSATE 100 MG CAPSULE 200 MG PO (21:03)
[2023-10-01] MEDS: LACTATED RINGERS 1,000 ML 75 ML IV (00:06)
[2023-10-01 03:00] VITALS: BP 95/47; PULSE 68; RESP 15; TEMP 36.6; O2SAT 99
[2023-10-01] MEDS: ACETAMINOPHEN 325 MG TABLET 650 MG PO (04:30)
[2023-10-01 05:02] LABS: Add Manual Diff / Slide Review NO; Basophils Absolute Auto 100 /uL (0-100); Basophils Percent Auto 0.6 % (0-2); Eosinophils Absolute Auto 0 /uL (0-450); Hematocrit 29.9 % (36-46); Hemoglobin 10.7 g/dL (12.0-16.0); Lymphocytes Absolute Auto 1400 /uL (1100-4500); Lymphocytes Percent Auto 13.9 % (25-40); Mean Corpuscular HGB Conc 35.6 % (30-36); Mean Corpuscular Hemoglobin 31.4 PG (26-34); Monocytes Absolute Auto 500 /uL (0-900); Monocytes Percent Auto 5.2 % (3-14); Neutrophils Absolute Auto 8200 /uL (1500-7000); Neutrophils Percent Auto 80.3 % (50-75); Platelet Count 161 X10^3/uL (150-400); Red Cell Distribution Width 13.6 % (11.6-14.8); White Blood Cell Count 10.2 X10^3/uL (4.5-11.0)
[2023-10-01 05:17] LABS: BUN Creatinine Ratio 16.7 (6-22); Blood Urea Nitrogen 11 mg/dL (7-17); Calcium 7.7 mg/dL (8.4-10.2); Carbon Dioxide 21 mmol/L (22-32); Chloride 112 mmol/L (98-107); Estimated Glomerular Filt Rate > 60 mL/min (>60); Glucose 106 mg/dL (80-110); HEMOLYSIS < 15 (0-50); Potassium 3.8 mmol/L (3.4-5.1); Sodium 137 mmol/L (137-145)
[2023-10-01] MEDS: LEVOTHYROXINE 75 MCG TABLET PO (05:57)
--- NOTE | 2023-10-01 06:33 | PC.NURSE ---
pt has had an uneventful shift; she has not required any pain medicine other than her scheduled Tylenol; she declined a sleeping pill and slept well this shift
[2023-10-01 08:00] VITALS: BP 104/54; PULSE 72; RESP 16; TEMP 36.3; O2SAT 98
--- NOTE | 2023-10-01 08:52 | CM.DANOTE ---
DCP: Case received, EMR reviewed and met with patient. Introduced self and role. Was able to obtain information regarding patient's baseline activity level at home prior to surgery. DCP assessment completed with information currently available. Patient is a 73 year old female who admitted yesterday morning to the care of Dr. Powell. PCP: HELEN Peterson. Payer: Medicare/[employer]. Patient came to the hospital via private vehicle for a surgical procedure. Patient had a cystocele and rectocele, secondary to stress urinary incontinence. Met with patient in her room, spouse, Ankur, came in shortly after. Introduced self and role. Confirmed that patient resides here in [place] with spouse, Ankur. She is retired, and independent at her baseline. Confimed with patient that she is still seeing HELEN Peterson, as he primary care provider. P: Patient has discharge orders for home today. Monica Unger RN/Machine Chain Maker Discharge Planning/Care Management CM Discharge Assessment Start: 10/01/23 08:50 Freq: Status: Active Protocol: Document 10/01/23 08:50 (Rec: 10/01/23 08:51 [id number]) Discharge Planning Assessment Assigned Floor Manager Monica Unger RN/Machine Chain Maker Advance Directives? No History Provided By Patient,Medical Record Prior Living Arrangements House Household Members spouse Type of transporation used prior to Drives own vehicle admit Independent with ADL's Yes Is patient alert and oriented? Yes Caregiver for Another No Barriers to Discharge No Discharge Plan Home Transportation Arrangement Spouse Referrals Initiated None needed Whiteboard Updated in Patient Room with Yes name and ext. # of Floor Manager Review Status In Process Next Review Type Continued Stay Review Pre-Anesthesia Assessment Start: 09/23/23 15:16 Freq: Status: Active Protocol: Document 09/23/23 15:16 CAB (Rec: 09/23/23 15:22 CAB [id number]) Pre-Anesthesia Assessment Preferred Name Mitali Patient Information Reviewed Via Chart Review Primary Care Provider Michelle Roque Seen Specialist in Last 12 Months Yes Specialist Seen Interactive Multimedia Designer,Other Comment GI Primary Language Surinamese Side Stitcher Required No Height 5 ft 4 in Weight 157 lb Body Mass Index (BMI) 26.9 Hearing Ability Normal Visual Assist Glasses Dentition Type Teeth, Natural Present Barriers to Learning None Hx Anesthesia Reactions No Hx Family Anesthesia Reaction No Hx Malignant Hyperthermia No Hx Blood Transfusions No Anesthesia Review Requested No Second Language Tutor No alcohol intake current Smoking Status Never smoker Substance Use Type does not use Pain Present Pain Reported Musculoskeletal Symptoms Arthralgias,Neck Pain Patient is completely paralyzed or No completely immobile Mental Status Oriented to own ability Is patient on oxygen? No Does patient have BARNHART/SOB No Hx Sleep Apnea No Currently Taking a Beta Kelly No Hx Chest Pain No Hx SOB No Hx Syncope or Dizziness No Anti-Coagulant Therapy No Cardiac Testing No Hx Pacemaker/ICD No Pacemaker Rep Required? No Cardiac Clearance Received Not Applicable Bladder Pattern Incontinent Urinary Catheter Present No Hx Urinary Self Catheterization No Diabetes No Patient No Lactating No Marital Status Lives With spouse Patient Discharge Plan Description Return Home
[2023-10-01] MEDS: NITROFURANTOIN ER 100 MG CAPSULE PO (09:26)
[2023-10-01] MEDS: DOCUSATE 100 MG CAPSULE 200 MG PO (09:26)
--- NOTE | 2023-10-01 09:55 | PC.NURSE ---
Discharge: Pt A&Ox4, SBA, VSS. D/c paperwork discussed, pt provided with leg bag for discharge. F/u appt scheduled. Pt verbalized understanding of discharge instructions. IV discontinued. Pt wheeled via w/c to private vehicle by PCT with spouse at approximately 0955.
--- NOTE | 2023-10-02 04:33 | PM.DS.1 ---
History of Present Illness History of Present Illness Date Patient Seen: 10/01/23 Time Patient Seen: 07:50 Chief complaint: Anterior Posterio Repair TVT w/Cysto *OPB* Narrative: Patient is a 73-year-old who underwent an anterior-posterior repair, and a TVT with cystoscopy on September 30, 2023. She inadvertent cystotomy with the TVT. A catheter remained in place. On postop day # 1 the vaginal packing was removed. There was minimal bleeding. Her incisions were clean dry and intact. The urine was clear. Her pain was well controlled. She was tolerating a diet. She is discharged home with Cedeno catheter in place with leg bag teaching. Discharge Providers Provider Date of admission: September 30, 2023 Discharge Date: 10/01/23 Primary care physician: HELEN Peterson Consults: Intraoperative consultation with Dr. Keysha Crawford, uro underliner at the [facility] Discharge provider: Vika Powell MD Summary Hospital Course Discharge Diagnosis: Symptomatic cystocele and rectocele Stress urinary incontinence Inadvertent cystotomy Hospital Course: Patient is a 73-year-old 6 para 4 who was admitted on September 30, 2023 for a scheduled anterior-posterior repair, and a TVT with cystoscopy. During the TVT the bladder was inadvertently entered with the TVT. This was found after a second cystoscopy when the urine was found to be bloody at the end of the case. An intraoperative consultation was obtained from Dr. Keysha Crawford at Uro[facility]cology. The Cedeno catheter was left in place. The urine cleared over the next few hours. On postop day # 1 patient was tolerating a diet, her pain was well controlled, no nausea or vomiting, urine was clear. She was discharged home with Cedeno catheter in place and leg bag teaching. She is to follow-up at the [facility] with Urogynecology. Status at Discharge Cognitive/behavioral status at discharge: oriented Functional status at discharge: independent ambulation Overall status at discharge: patient is progressing back to baseline Time Spent with Patient Time spent: Less than 30 minutes Exam Vital Signs (past 8 hours): Oxygen Delivery Method Room Air Oxygen Flow Rate 0 Narrative Exam Narrative: Generally: Patient lying in bed, no acute distress Lungs: Clear to auscultation bilaterally Cardiovascular: Regular rate and rhythm Abdomen: Soft and flat. Incisions: Clean dry and intact with Dermabond Perineum: Intact. Small amount of old blood Objective Labs 10/01/23 04:25 10/01/23 04:25 Labs: Laboratory Results - last 24 hr 10/01/23 04:25 WBC 10.2 RBC 3.40 L Hgb 10.7 L Hct 29.9 L MCV 88.0 MCH 31.4 MCHC 35.6 RDW 13.6 Plt Count 161 Neut % (Auto) 80.3 H Lymph % (Auto) 13.9 L Dougherty % (Auto) 5.2 Eos % (Auto) 0.0 L Baso % (Auto) 0.6 Neut # (Auto) 8200 H Lymph # (Auto) 1400 Dougherty # (Auto) 500 Eos # (Auto) 0 Baso # (Auto) 100 Sodium 137 Potassium 3.8 Chloride 112 H Carbon Dioxide 21 L BUN 11 Creatinine 0.66 Estimated GFR > 60 BUN/Creatinine Ratio 16.7 Glucose 106 Calcium 7.7 L [facility] Medical History (Updated 09/23/23 @ 15:22 by Rebecca Ta RN) History of COVID-19 (03/2023) Arthritis Medicare annual wellness visit, subsequent (09/12/21) Diverticular disease (~2007) 6 Cervical spine disease (2011) Hypothyroidism (~2004) Abnormal Pap smear of cervix Tinnitus Surgical History Anesthesia Status post tubal ligation (1986) Status post tonsillectomy and adenoidectomy (1950) Family History Grandfather Stroke Grandmother Heart disease Hypertension Mother Age: 97 IBS (irritable bowel syndrome) Hearing loss Grandfather Stroke Grandmother Diabetes mellitus Stroke Father Pleural mesothelioma Social History household members: spouse Smoking Status: Never smoker alcohol intake: current Discharge Assessment & Plan Assessment and Plan Assessment: Assessment: 73-year-old 6 para 4 postop day # 1 status post anterior-posterior repair, TVT with cystoscopy, complicated by inadvertent cystotomy Patient doing very well Plan of Treatment: Discharge to home Follow-up with Dr. Keysha Crawford at Urogynecology Discharge Plan Discharge Plan Patient Disposition: Home Provider Discharge Comment: Call with fever, chills, redness or drainage around the suprapubic incisions, or marysol blood in the catheter Tylenol 650 mg every 6 hours as needed Ibuprofen 600 mg every 6 hours as needed Stool softeners until bowel returns to normal Discharge orders & Medications Discharge Orders: Discharge (Order); Ordered 10/01/23 Ordered By: Vika Powell Prescriptions: New phenazopyridine [Pyridium] 100 mg tablet 100 mg PO TID PRN (Reason: pain) Qty: 14 0RF nitrofurantoin macrocrystal 100 mg capsule 100 mg PO BEDTIME Qty: 30 0RF Rx Instructions: must administer with a meal/food Continued levothyroxine 75 mcg tablet See Rx Instructions .ROUTE .COMPLEX Qty: 90 3RF Dose Instruction: take 1 tablet by mouth every morning Rx Instructions: take 1 tablet by mouth every morning Flax Seed Oil See Rx Instructions .ROUTE .COMPLEX Rx Instructions: Take 1500iu per day; Ibuprofen See Rx Instructions .ROUTE .COMPLEX Rx Instructions: 600mg by mouth as needed, intermittently; Tylenol See Rx Instructions .ROUTE .COMPLEX Rx Instructions: 500mg take 1 by mouth as needed NTE 3000mg/24 hours; Discontinued CMP Estriol Vaginal 0.1% Cream 1 g vaginal 2XW Qty: 30 3RF Rx Instructions: [facility] Follow up/Referrals: Vika Powell MD [Physician] - (Patient has postop appointment scheduled) Diet/Activity/Treatments Diet: Regular Activity: No heavy lift Visit Report/Discharge Packet Instructions: DI for Cystocele and Rectocele Repair Stand Alone Forms: Patient Portal/API, Surgery Discharge Discharge Data Primary Care Provider: Michelle Roque Attending Provider: Viak Powell Quality VTE Deep Vein Thrombosis/Pulmonary Embolism Present on Admission: No
== END 2023-10-01 09:55 | disposition home or self-care (01) ==
LOC: OR 16:10 → AC 16:11
PROVIDERS: PCP Nurse Practitioner; Referring Provider Obstetrics & Gynecology; Visit Provider Obstetrics & Gynecology
PROC: (CPT 57288; principal; 2023-09-30 12:15)
PROC: 0TSD0ZZ Reposition Urethra, Open Approach (ICD-10-PCS; CPT 57288; 2023-09-30 12:15)
DX: N39.3 Stress incontinence (female) (male) (principal); N81.10 Cystocele, unspecified; N81.6 Rectocele
CPT/HCPCS: 57288; 57260; 36415; 76705; 80048; 85025; C1771; J0131; J0171; J0690; J1100; J1885; J2405

== ENCOUNTER → 2023-10-06 09:47 | Outpatient (CLI) | payer MEDICARE, OTHER, SELFPAY ==
[2023-09-30 16:22] VITALS: BMI 29.3
--- NOTE | 2023-10-06 10:05 | DI.CT.S_ITS ---
PROCEDURE: CT IVP A/P W/WO INDICATIONS: Uretheral sling/left flank pain. TECHNIQUE: Optional 5 mm thick noncontrast images acquired from the diaphragm to the symphysis pubis. After the administration of intravenous contrast, 5 mm thick images acquired from the diaphragm to the symphysis pubis after a 10-minute delay. 2 mm thick coronal and sagittal reformats were then performed of the kidneys and ureters. For radiation dose reduction, the following was used: automated exposure control, adjustment of mA and/or kV according to patient size. COMPARISON: CT abdomen and pelvis, 07/01/2007.. FINDINGS: Image quality: Diagnostic. Kidneys and Ureters: Both kidneys are normal in size, without hydronephrosis or nephrolithiasis. No perinephric fat stranding. There is normal bilateral renal enhancement. Renal calyces appear normal in morphology when filled with contrast. Opacified portions of both ureters demonstrate normal caliber Bladder: There is a Cedeno catheter within the urinary bladder. There is mass effect from adjacent bowel loop to the left bladder wall. No contrast extravasation to suggest bladder injury. Air within the non gravity dependent bladder lumen. No calcified bladder stones. OTHER: Lung bases: Unremarkable. Heart: No significant findings. Liver: No solid mass. 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 Mild hepatomegaly and hepatic steatosis. Gallbladder: No radiopaque gallstones or wall thickening. Biliary ducts: No biliary dilation. Pancreas: No ductal dilation. Spleen: Size is within normal limits. Adrenal Glands: No adrenal nodules. Stomach and Bowel: Normal small bowel and colonic caliber, without significant wall thickening. Normal appendix. Diverticulosis without acute diverticulitis. Peritoneum: No abnormal intraperitoneal fluid. No free air. Ventral Wall: No hernia. Abdominal Nodes: No retroperitoneal or mesenteric adenopathy by size criteria. Vessels: Aorta and inferior vena cava are normal in size. There is a 1.3 cm splenic artery aneurysm. Mild atherosclerosis. PELVIS: Pelvic Organs: There is a 2 cm hypodensity in the left uterine wall, most likely a uterine fibroid. Ovaries are unremarkable. No pathological free-fluid in pelvis. Pelvic Nodes: No enlarged lymph nodes. Miscellaneous: No inguinal hernias are seen. Bones: No aggressive osseous abnormality. IMPRESSION: 1. A cause for left flank pain is not definitively identified. No hydronephrosis. The left ureter is intact. 2. No contrast extravasation around the urinary bladder. There is a Cedeno catheter. Air within the bladder is likely iatrogenic. 3. No fluid collections to suggest hematoma or abscess. 4. A 2 cm hypodensity in the left uterine wall, most likely a uterine fibroid. 5. Diverticulosis without diverticulitis. 6. A 1.3 cm splenic artery aneurysm. The result was discussed with Dr. Powell. Dictated by: Clarita Lemus M.D. on 10/06/2023 at 10:29 Approved by: Clarita Lemus M.D. on 10/06/2023 at 11:13
[2023-10-06 12:05] LABS: Add Manual Diff / Slide Review NO; Basophils Absolute Auto 100 /uL (0-100); Basophils Percent Auto 1.1 % (0-2); Eosinophils Absolute Auto 200 /uL (0-450); Eosinophils Percent Auto 3.1 % (2-4); Hematocrit 38.9 % (36-46); Hemoglobin 13.7 g/dL (12.0-16.0); Lymphocytes Absolute Auto 1900 /uL (1100-4500); Lymphocytes Percent Auto 25.7 % (25-40); Mean Corpuscular HGB Conc 35.3 % (30-36); Mean Corpuscular Hemoglobin 30.5 PG (26-34); Mean Corpuscular Volume 86.3 fL (80-100); Monocytes Absolute Auto 400 /uL (0-900); Monocytes Percent Auto 5.7 % (3-14); Neutrophils Absolute Auto 4700 /uL (1500-7000); Neutrophils Percent Auto 64.4 % (50-75); Platelet Count 254 X10^3/uL (150-400); Red Cell Distribution Width 13.4 % (11.6-14.8); White Blood Cell Count 7.3 X10^3/uL (4.5-11.0)
[2023-10-06 12:36] LABS: BUN Creatinine Ratio 17.8 (6-22); Blood Urea Nitrogen 13 mg/dL (7-17); Calcium 9.7 mg/dL (8.4-10.2); Carbon Dioxide 23 mmol/L (22-32); Chloride 102 mmol/L (98-107); Estimated Glomerular Filt Rate > 60 mL/min (>60); Glucose 98 mg/dL (80-110); HEMOLYSIS < 15 (0-50); Potassium 4.5 mmol/L (3.4-5.1); Sodium 133 mmol/L (137-145)
== END ==
PROVIDERS: PCP Nurse Practitioner; Referring Provider Obstetrics & Gynecology; Visit Provider Obstetrics & Gynecology
DX: T83.712A Erosion of implanted urethral mesh to surrounding organ or tissue, initial encounter (principal); N39.3 Stress incontinence (female) (male); N81.3 Complete uterovaginal prolapse; I72.8 Aneurysm of other specified arteries; K57.90 Diverticulosis of intestine, part unspecified, without perforation or abscess without bleeding; R10.9 Unspecified abdominal pain; E78.2 Mixed hyperlipidemia; N95.9 Unspecified menopausal and perimenopausal disorder; Z78.0 Asymptomatic menopausal state
CPT/HCPCS: 36415; 74178; 80048; 81001; 85025; 87086; Q9967

== ENCOUNTER → 2023-10-06 10:47 | Outpatient (CLI) | payer MEDICARE, OTHER, SELFPAY ==
[2023-09-30 16:22] VITALS: BMI 29.3
[2023-10-07 10:18] LABS: Appearance Urine UA CLEAR; Bilirubin Urine UA NEGATIVE (NEGATIVE); Color Urine UA YELLOW; Glucose Urine UA NEGATIVE (Negative); Ketones Urine UA NEGATIVE (NEGATIVE); Leukocyte Esterase Urine UA NEGATIVE (NEGATIVE); Nitrite Urine UA NEGATIVE (Negative); Occult Blood Urine UA 3+ (Negative); Protein Urine UA NEGATIVE (Negative); Specific Gravity Urine UA <=1.005 (1.000-1.035); Urobilinogen Urine UA 0.2 E.U./dL (0.2)
[2023-10-07 10:25] LABS: Bacteria Urine None Seen; Culture Indicated Urine Cult Not Indicated; RBC Urine 5-10/HPF (0-5/HPF); Squamous Epithelial Cell Urine None Seen (0-5/HPF); WBC Urine None Seen (0-5/HPF)
== END ==
PROVIDERS: PCP Nurse Practitioner; Visit Provider Obstetrics & Gynecology
DX: T83.712A Erosion of implanted urethral mesh to surrounding organ or tissue, initial encounter (principal); N81.3 Complete uterovaginal prolapse; N39.3 Stress incontinence (female) (male)
CPT/HCPCS: 87086

== ENCOUNTER → 2023-11-27 09:39 | Outpatient (CLI) | payer MEDICARE, OTHER, SELFPAY ==
[2023-09-30 16:22] VITALS: BMI 29.3
--- NOTE | 2023-11-27 09:42 | DI.MG.S_ITS ---
BILATERAL DIGITAL SCREENING MAMMOGRAM 3D/2D WITH CAD: 11/27/2023 CLINICAL: Routine screening. Family history of breast cancer. Comparison is made to exams dated: 10/14/2022 mammogram, 09/09/2021 mammogram, 07/11/2020 mammogram, and 05/10/2019 mammogram - [facility]. There are scattered areas of fibroglandular density in both breasts (category b / 25%-50% glandular tissue). Current study was also evaluated with a Computer Aided Detection (CAD) system. There are benign vascular calcifications in the right breast. No significant masses, calcifications, or other findings are seen in either breast. There has been no significant interval change. IMPRESSION: BENIGN There is no mammographic evidence of malignancy. A 1 year screening mammogram is recommended. Based on the Tyrer Cuzick model (a risk assessment model) the patient's lifetime risk is 4.5% and her 10 year risk is 4.0%. According to the ACR, ACS, and NCCN guidelines, an annual breast MRI exam along with mammogram is recommended if the patient's lifetime risk is 20% or greater. This exam was interpreted at Station ID: [id number]. NOTE: For mammograms, a report in lay terms will be sent to the patient. Approximately 15% of breast malignancies will not be visualized mammographically. In the management of a palpable breast mass, a negative mammogram must not discourage biopsy of a clinically suspicious lesion. Electronically Signed By: Fred roldan/rita:11/27/2023 16:26:37 letter sent: Normal Exam ACR BI-RADS Category 2: Benign Finding(s) 3342F
== END ==
PROVIDERS: PCP Nurse Practitioner; Referring Provider Nurse Practitioner; Visit Provider Nurse Practitioner
DX: Z12.31 Encounter for screening mammogram for malignant neoplasm of breast (principal); Z80.3 Family history of malignant neoplasm of breast; R92.323 Mammographic fibroglandular density, bilateral breasts
CPT/HCPCS: 77063; 77067

== ENCOUNTER → 2024-03-07 07:18 | Outpatient (CLI) | payer MEDICARE, OTHER, SELFPAY ==
[2023-09-30 16:22] VITALS: BMI 29.3
[2024-03-07 08:22] LABS: Alanine Aminotransferase 16 IU/L (<35); Albumin Globulin Ratio 1.5 (1.0-2.8); Alkaline Phosphatase 49 U/L (38-126); Aspartate Aminotransferase 28 IU/L (14-36); BUN Creatinine Ratio 23.1 (6-22); Bilirubin Total 0.5 mg/dL (0.2-1.3); Blood Urea Nitrogen 18 mg/dL (7-17); Carbon Dioxide 23 mmol/L (22-32); Chloride 109 mmol/L (98-107); Cholesterol 275 mg/dL (140-199); Estimated Glomerular Filt Rate > 60 mL/min (>60); Globulin 2.7 g/dL (1.7-4.1); Glucose 112 mg/dL (80-110); HDL Cholesterol 53 mg/dL (40-60); HEMOLYSIS < 15 (0-50); LDL Cholesterol Calculated 183 mg/dL (<100); Potassium 4.5 mmol/L (3.4-5.1); Sodium 138 mmol/L (137-145); Total Protein 6.7 g/dL (6.3-8.2); Triglycerides 196 mg/dL (35-150)
[2024-03-07 08:41] LABS: Free T3, Triiodothyronine Free 2.91 pg/mL (2.77-5.27); Free T4, Direct Thyroxine 1.07 ng/dL (0.78-2.19)
[2024-03-07 08:55] LABS: Thyroid Stimulating Hormone 2.84 uIU/mL (0.47-4.68)
[2024-03-07 10:59] LABS: Creatinine Urine Random 42.07 mg/dL
[2024-03-07 11:05] LABS: Microalbumin Urine Random < 0.6 mg/dL (0-1.6)
== END ==
PROVIDERS: PCP Nurse Practitioner; Referring Provider Nurse Practitioner; Visit Provider Nurse Practitioner
DX: E03.9 Hypothyroidism, unspecified (principal); E78.2 Mixed hyperlipidemia; Z79.899 Other long term (current) drug therapy
CPT/HCPCS: 36415; 80053; 80061; 82043; 82570; 84439; 84443; 84481

== ENCOUNTER → 2025-02-03 07:41 | Outpatient (CLI) | payer MEDICARE, OTHER, SELFPAY ==
[2023-09-30 16:22] VITALS: BMI 29.3
--- NOTE | 2025-02-03 07:43 | DI.MG.S_ITS ---
MM screening mammo BI: 02/03/2025. BI-RADS: 1 CLINICAL: 74-year old female for bilateral screening mammogram. Tyrer-Cuzick lifetime risk of 4.5%. No personal or first-degree family history of breast cancer. Current reported family history of breast cancer: paternal aunt. PRIOR EXAMS 11/27/2023, 10/14/2022, 09/09/2021, 07/11/2020, 05/10/2019, 05/04/2018, 04/15/2018, 06/12/2017, 06/10/2016, 05/21/2015. MAMMOGRAPHY TECHNIQUE: 2D and 3D (tomosynthesis) digital mammographic views obtained, with additional images as needed for full coverage. Current study was also evaluated with a Computer Aided Detection (CAD) system. DENSITY B. There are scattered areas of fibroglandular density. MAMMOGRAPHY FINDINGS Bilateral: No suspicious mass, asymmetry, microcalcification, or other abnormality seen. No significant change from comparison. IMPRESSION: * No evidence of malignancy. RECOMMENDATIONS Bilateral * Annual screening mammography. OVERALL ASSESSMENT CATEGORY BI-RADS-1: Negative. The [employer] recommends annual screening mammography beginning at age 40 for women with average risk of breast cancer. ELECTRONICALLY SIGNED: Danyelle Langford M.D. on 02/03/2025 at 01:49:53 PM PT Interpreting Station ID: [id number]
== END ==
PROVIDERS: PCP Family Medicine; Referring Provider Family Medicine; Visit Provider Family Medicine
DX: Z12.31 Encounter for screening mammogram for malignant neoplasm of breast (principal); Z80.3 Family history of malignant neoplasm of breast
CPT/HCPCS: 77063; 77067

== ENCOUNTER → 2025-03-10 07:56 | Outpatient (CLI) | payer MEDICARE, OTHER, SELFPAY ==
[2023-09-30 16:22] VITALS: BMI 29.3
[2025-03-10 09:40] LABS: Alanine Aminotransferase 18 IU/L (<35); Albumin 4.2 g/dL (3.5-5.0); Albumin Globulin Ratio 1.5 (1.0-2.8); Alkaline Phosphatase 49 U/L (38-126); Aspartate Aminotransferase 32 IU/L (14-36); BUN Creatinine Ratio 18.8 (6-22); Bilirubin Total 0.5 mg/dL (0.2-1.3); Blood Urea Nitrogen 15 mg/dL (7-17); Calcium 9.1 mg/dL (8.4-10.2); Carbon Dioxide 23 mmol/L (22-32); Chloride 105 mmol/L (98-107); Cholesterol 260 mg/dL (140-199); Estimated Glomerular Filt Rate > 60 mL/min (>60); Globulin 2.8 g/dL (1.7-4.1); Glucose 104 mg/dL (70-99); HDL Cholesterol 49 mg/dL (40-60); HEMOLYSIS < 15 (0-50); LDL Cholesterol Calculated 174 mg/dL (<100); Potassium 4.3 mmol/L (3.4-5.1); Sodium 137 mmol/L (137-145); Triglycerides 187 mg/dL (35-150)
[2025-03-10 09:47] LABS: Hematocrit 39.6 % (36-46); Hemoglobin 13.5 g/dL (12.0-16.0); Mean Corpuscular HGB Conc 34.1 % (30-36); Mean Corpuscular Hemoglobin 29.8 PG (26-34); Mean Corpuscular Volume 87.4 fL (80-100); Platelet Count 239 X10^3/uL (150-400); Red Blood Cell Count 4.53 X10^6/uL (4.0-5.2); Red Cell Distribution Width 13.5 % (11.6-14.8); White Blood Cell Count 5.4 X10^3/uL (4.5-11.0)
[2025-03-10 09:51] LABS: Free T3, Triiodothyronine Free 3.71 pg/mL (2.77-5.27); Free T4, Direct Thyroxine 1.64 ng/dL (0.78-2.19)
[2025-03-10 10:04] LABS: Thyroid Stimulating Hormone 2.69 uIU/mL (0.47-4.68)
== END ==
PROVIDERS: PCP Family Medicine; Referring Provider Family Medicine; Visit Provider Family Medicine
DX: E03.9 Hypothyroidism, unspecified (principal); E78.2 Mixed hyperlipidemia
CPT/HCPCS: 36415; 80053; 80061; 84439; 84443; 84481; 85027